=== PATIENT | female | born 1965 | race American Indian/Alaskan Native ===

== ENCOUNTER 2020-04-24 08:14 | Emergency (ER) | payer MEDICAID ==
[2020-04-24] MEDS ORDERED: MAGNESIUM HYDROXIDE (MOM) ORAL LIQD UDC PO PRN (09:03)
[2020-04-24] MEDS ORDERED: ALUM-MAG HYDROXIDE-SIMETHICONE 200-200-20MG/5ML ORAL LIQD 30 ML PO PRN (09:03)
--- NOTE | 2020-04-24 09:03 | Emergency Department Report ---
ED Psych HPI - General Chief Complaint: Psych Stated Complaint: SICK Time Seen by Provider: 04/24/20 08:28 Source: patient Mode of arrival: Ambulatory - History of Present Illness Initial Comments: This is a 54-year old female homeless brought to this facility by police. Apparently she made some suicidal claims. She states to me that she wants to "suicide herself". She also has a series of apparent physical complaints to include hematochezia, loss of taste and loss of smell. She largely answers yes to any somatic type complaint. She states that she has a history of hype rtension and they were "watching me for diabetes". She admits she takes medicine for hearing voices but is not having any hallucinosis now. She has been noncompliant with all medicine for an unknown period of time. She states her last hospitalization was in "[facility]". She does not identify family friends or a home address. At the time of my encounter the patient is identifying being hungry as her most urgent need. MD Complaint: suicidal ideation -: unknown Associated Psychiatric Symptoms: none History of same: Yes Quality: intermittent Improves With: none Worsens With: none Associated Symptoms: other (States that times hears voices) Treatments Prior to Arrival: none If Self Harm: admits thoughts of - Related Data Allergies Allergy/AdvReac Type Severity Reaction Status Date / Time No Known Allergies Allergy Verified 04/24/20 10:55 ED Review of Systems ROS: Stated complaint: SICK Other details as noted in HPI Comment: Unobtainable due to pts medical conditions ED Past Medical Hx - Past Medical History Hx Hypertension: Yes Hx Psychiatric Treatment: Yes (bipolar) - Surgical History Past Surgical History?: No - Social History Smoking Status: Never Smoker Substance Use Type: None ED Physical Exam - General Limitations: No Limitations General appearance: alert, in no apparent distress - Head Head exam: Present: atraumatic, normocephalic - Eye Eye exam: Present: normal appearance, PERRL, EOMI. Absent: scleral icterus - ENT ENT exam: Present: mucous membranes moist - Neck Neck exam: Present: normal inspection - Respiratory Respiratory exam: Present: normal lung sounds bilaterally. Absent: respiratory distress - Cardiovascular Cardiovascular Exam: Present: regular rate, normal rhythm. Absent: systolic murmur, diastolic murmur, rubs, gallop - GI/Abdominal GI/Abdominal exam: Present: soft, normal bowel sounds. Absent: distended, tenderness, guarding, rebound - Extremities Exam Extremities exam: Present: normal inspection - Back Exam Back exam: Present: normal inspection - Neurological Exam Neurological exam: Present: alert, oriented X3, CN II-XII intact. Absent: motor sensory deficit - Psychiatric Psychiatric exam: Present: normal affect, normal mood - Skin Skin exam: Present: warm, dry, intact, normal color. Absent: rash ED Course Vital Signs 04/24/20 04/24/20 08:19 09:54 Temperature 98 F Pulse Rate 63 Respiratory 20 18 Rate Blood Pressure 144/76 - Reevaluation(s) Reevaluation #1: It would appear unlikely that the patient has somatic delusions. However, pending psychiatric evaluation, I will initiate Covid precautions and order PCR. 04/24/20 11:27 ED Medical Decision Making - Lab Data Result diagrams: 04/24/20 10:11 04/24/20 10:11 Laboratory Results - last 24 hr 04/24/20 04/24/20 04/24/20 10:11 Unknown Unknown WBC 3.8 L RBC 4.32 Hgb 13.6 Hct 40.0 MCV 93 MCH 32 MCHC 34 RDW 13.6 Plt Count 178 Lymph % (Auto) 30.6 [place] % (Auto) 7.5 H Eos % (Auto) 5.5 H Baso % (Auto) 0.7 Lymph # (Auto) 1.2 [place] # (Auto) 0.3 Eos # (Auto) 0.2 Baso # (Auto) 0.0 Seg Neutrophils % 55.7 Seg Neutrophils # 2.1 Urine Color Straw Urine Turbidity Clear Urine pH 5.0 Ur Specific [place] 1.011 Urine Protein <15 mg/dl Urine Glucose (UA) Neg Urine Ketones Neg Urine Blood Neg Urine Nitrite Neg Urine Bilirubin Neg Urine Urobilinogen < 2.0 Ur Leukocyte Esterase Neg Urine WBC (Auto) < 1.0 Urine RBC (Auto) 2.0 U Epithel Cells (Auto) 1.0 Urine Bacteria (Auto) 1+ Urine Opiates Screen Negative Urine Methadone Screen Negative Ur Barbiturates Screen Negative Ur Phencyclidine Scrn Negative Ur Amphetamines Screen Negative U Benzodiazepines Scrn Negative Urine Cocaine Screen Negative U Marijuana (THC) Screen Negative Drugs of Abuse Note Disclamer Laboratory Results - last 24 hr 04/24/20 04/24/2004/24/21 10:11 10:11 10:11 WBC RBC Hgb Hct MCV MCH MCHC RDW Plt Count Lymph % (Auto) [place] % (Auto) Eos % (Auto) Baso % (Auto) Lymph # (Auto) [place] # (Auto) Eos # (Auto) Baso # (Auto) Seg Neutrophils % Seg Neutrophils # Sodium 143 Potassium 4.2 Chloride 105.3 Carbon Dioxide 26 Anion Gap 16 BUN 8 Creatinine 0.7 Estimated GFR > 60 BUN/Creatinine Ratio 11 Glucose 93 Calcium 9.5 Urine Color Urine Turbidity Urine pH Ur Specific [place] Urine Protein Urine Glucose (UA) Urine Ketones Urine Blood Urine Nitrite Urine Bilirubin Urine Urobilinogen Ur Leukocyte Esterase Urine WBC (Auto) Urine RBC (Auto) U Epithel Cells (Auto) Urine Bacteria (Auto) Salicylates < 0.3 L Urine Opiates Screen Urine Methadone Screen Acetaminophen 5.0 L Ur Barbiturates Screen Ur Phencyclidine Scrn Ur Amphetamines Screen U Benzodiazepines Scrn Urine Cocaine Screen U Marijuana (THC) Screen Drugs of Abuse Note Plasma/Serum Alcohol 04/24/20 04/24/20 04/24/20 10:11 10:11 Unknown WBC 3.8 L RBC 4.32 Hgb 13.6 Hct 40.0 MCV 93 MCH 32 MCHC 34 RDW 13.6 Plt Count 178 Lymph % (Auto) 30.6 [place] % (Auto) 7.5 H Eos % (Auto) 5.5 H Baso % (Auto) 0.7 Lymph # (Auto) 1.2 [place] # (Auto) 0.3 Eos # (Auto) 0.2 Baso # (Auto) 0.0 Seg Neutrophils % 55.7 Seg Neutrophils # 2.1 Sodium Potassium Chloride Carbon Dioxide Anion Gap BUN Creatinine Estimated GFR BUN/Creatinine Ratio Glucose Calcium Urine Color Straw Urine Turbidity Clear Urine pH 5.0 Ur Specific [place] 1.011 Urine Protein <15 mg/dl Urine Glucose (UA) Neg Urine Ketones Neg Urine Blood Neg Urine Nitrite Neg Urine Bilirubin Neg Urine Urobilinogen < 2.0 Ur Leukocyte Esterase Neg Urine WBC (Auto) < 1.0 Urine RBC (Auto) 2.0 U Epithel Cells (Auto) 1.0 Urine Bacteria (Auto) 1+ Salicylates Urine Opiates Screen Urine Methadone Screen Acetaminophen Ur Barbiturates Screen Ur Phencyclidine Scrn Ur Amphetamines Screen U Benzodiazepines Scrn Urine Cocaine Screen U Marijuana (THC) Screen Drugs of Abuse Note Plasma/Serum Alcohol < 0.01 04/24/20 Unknown WBC RBC Hgb Hct MCV MCH MCHC RDW Plt Count Lymph % (Auto) [place] % (Auto) Eos % (Auto) Baso % (Auto) Lymph # (Auto) [place] # (Auto) Eos # (Auto) Baso # (Auto) Seg Neutrophils % Seg Neutrophils # Sodium Potassium Chloride Carbon Dioxide Anion Gap BUN Creatinine Estimated GFR BUN/Creatinine Ratio Glucose Calcium Urine Color Urine Turbidity Urine pH Ur Specific [place] Urine Protein Urine Glucose (UA) Urine Ketones Urine Blood Urine Nitrite Urine Bilirubin Urine Urobilinogen Ur Leukocyte Esterase Urine WBC (Auto) Urine RBC (Auto) U Epithel Cells (Auto) Urine Bacteria (Auto) Salicylates Urine Opiates Screen Negative Urine Methadone Screen Negative Acetaminophen Ur Barbiturates Screen Negative Ur Phencyclidine Scrn Negative Ur Amphetamines Screen Negative U Benzodiazepines Scrn Negative Urine Cocaine Screen Negative U Marijuana (THC) Screen Negative Drugs of Abuse Note Disclamer Plasma/Serum Alcohol Critical care attestation.: If time is entered above; I have spent that time in minutes in the direct care of this critically ill patient, excluding procedure time. ED Disposition Clinical Impression: Psychiatric disorder, Suicidal ideation, Homelessness, Medical clearance for psychiatric admission Disposition: OP ADMIT IP TO THIS HOSP Is pt being admited?: Yes Does the pt Need Aspirin: Yes Condition: Stable Referrals: PRIMARY CARE, [Primary Care Provider] - 3-5 Days Time of Disposition: 10:00
[2020-04-24 09:14] LABS: Bacteria,Urine 1+ /HPF (Negative); Bilirubin,Urine NEG (Negative); Blood,Urine NEG (Negative); Color,Urine Straw (Yellow); Protein,Urine <15 mg/dL mg/dL (Negative); Urobilinogen,Urine < 2.0 mg/dL (<2.0); WBC,Urine < 1.0 /HPF (0.0-6.0)
[2020-04-24 09:19] LABS: Amphetamine Screen,Urine Negative; Benzodiazepines Screen,Urine Negative; Cannabinoid Screen,Urine Negative; Cocaine Screen,Urine Negative; Methadone Screen,Urine Negative; Opiate Screen,Urine Negative
[2020-04-24 10:21] LABS: Basophils % (Auto) 0.7 % (0.0-1.8); Eosinophils # (Auto) 0.2 K/mm3 (0.0-0.4); Eosinophils % (Auto) 5.5 % (0.0-4.3); Hemoglobin 13.6 gm/dl (10.1-14.3); Lymphocytes # (Auto) 1.2 K/mm3 (1.2-5.4); Lymphocytes % (Auto) 30.6 % (13.4-35.0); Mean Corpuscular HGB Conc 34 % (30-34); Mean Corpuscular Volume 93 fl (79-97); Monocytes # (Auto) 0.3 K/mm3 (0.0-0.8); Monocytes % (Auto) 7.5 % (0.0-7.3); Platelet Count 178 K/mm3 (140-440); Red Blood Count 4.32 M/mm3 (3.65-5.03); Red Cell Distribution Width 13.6 % (13.2-15.2)
--- NOTE | 2020-04-24 10:22 | Emergency Department Report ---
ED Psych HPI - General Chief Complaint: Psych Stated Complaint: SICK Time Seen by Provider: 04/24/20 08:28 Source: patient Mode of arrival: Ambulatory - History of Present Illness Quality: intermittent Improves With: none Worsens With: none Associated Symptoms: other (States that times hears voices) Treatments Prior to Arrival: none - Related Data Allergies Allergy/AdvReac Type Severity Reaction Status Date / Time No Known Allergies Allergy Unverified 04/24/20 08:19 ED Review of Systems ROS: Stated complaint: SICK Other details as noted in HPI ED Past Medical Hx - Past Medical History Hx Hypertension: Yes Hx Psychiatric Treatment: Yes (bipolar) - Surgical History Past Surgical History?: No - Social History Smoking Status: Never Smoker Substance Use Type: None ED Physical Exam - General Limitations: No Limitations General appearance: alert, in no apparent distress ED Course Vital Signs 04/24/20 04/24/20 08:19 09:54 Temperature 98 F Pulse Rate 63 Respiratory 20 18 Rate Blood Pressure 144/76 Critical care attestation.: If time is entered above; I have spent that time in minutes in the direct care of this critically ill patient, excluding procedure time. ED Disposition Condition: Stable Referrals: PRIMARY CARE [Primary Care Provider] - 3-5 Days
[2020-04-24 10:37] LABS: Blood Urea Nitrogen 8 mg/dL (7-17); Calcium 9.5 mg/dL (8.4-10.2); Hemolysis Index 43
[2020-04-24 10:40] LABS: BUN/Creatinine Ratio 11
--- NOTE | 2020-04-24 10:45 | Consultation ---
History of Present Illness - Reason for Consult Consult date: 04/24/20 Reason for consult: SI - History of Present Psychiatric Illness Per ED note: "This is a 54-year old female homeless brought to this facility by police. Apparently she made some suicidal claims. She states to me that she wants to "suicide herself". She also has a series of apparent physical complaints to include hematochezia, loss of taste and loss of smell. She largely answers yes to any somatic type complaint. She states that she has a history of hypertension and they were "watching me for diabetes". She admits she takes medicine for hearing voices but is not having any hallucinosis now. She has been noncompliant with all medicine for an unknown period of time. She states her last hospitalization was in "[facility]". She does not identify family friends or a home address." During my interview with 54y/o Kayla Kolb, she is a/o x 3. She is calm and cooperative. She is responding to internal stimuli. The patient says she came to the hospital because she has COVID 19. She says "I've been throwing up, diarrhea, and I can't taste or smell." She says "I told them if I got that I might as well go ahead and kill myself. I have nothing to live for." The patient is continuously talking to herself, and repeats the questions as if asking someone. She then is heard saying "tell her no," or "don't tell her that" to herself. She initially denies suicide at present. She then says "yes," after consulting with the voices. She says she has a history of depression. The patient says she hasn't been seeing an outpatient psych. She could not recall her medication. She denies any illicit drug use outside of THC. She also denies any alcohol use. PAST PSYCHIATRIC HISTORY: Diagnoses: Depression Suicide attempts or Self-harm behavior: Denies Prior psychiatric hospitalizations: Denies Substance Abuse history: THC Previous psychiatric medications tried: could not recall Outpatient treatment: Denies PAST MEDICAL HISTORY: None reported Family Psychiatric History: None reported or documented SOCIAL HISTORY Marital Status: Single Living Arrangements: With a friend Employment Status: Employed Access to guns/weapons: Denies Education: High school History of Abuse: None reported Legal History: None reported REVIEW OF SYSTEMS Constitutional: Negative for weight loss ENT: Negative for stridor Respiratory: Negative for cough or hemoptysis All other systems reviewed and are negative MENTAL STATUS EXAMINATION General Appearance and Behavior: Age appropriate, good hygiene, not wearing appropriate clothes, good eye contact, calm and cooperative with questioning. Cooperation: Participating Mood: okay Affect and affective range: congruent with stated mood Thought Process: Responding to internal stimuli Speech: pressured, loud volume at times Thought content: Suicidal Ideation: Yes Homicidal Ideation: Denies HI Hallucinations: Yes, auditory Delusions: None elicited Impulse Control: Normal Insight and Judgment: Impaired insight and judgment Memory: Limited Attention: Impaired Orientation: Alert, oriented Assessment and Plan (1) Schizoaffective Disorder Current Visit: Yes Status: Acute Treatment Plan Start Risperidone 0.25mg po BID Start Trazodone 50mg po qhs Start Melatonin 5mg po qhs prn Sitter: Defer to primary Medical: Per primary Disposition: Recommend acute inpatient psychiatric treatment. Will continue to follow. Thank you for this consult. Case staffed with Dr. Mtz. Medications and Allergies Allergies Allergy/AdvReac Type Severity Reaction Status Date / Time No Known Allergies Allergy Unverified 04/24/20 08:19 Active Meds: Active Medications Acetaminophen (Acetaminophen 325 Mg Tab) 650 mg PO Q4HR PRN PRN Reason: Pain MILD(1-3)/Fever >100.5/GONZALEZ Al Hydrox/Mg Hydrox/Simethicone (Alum-Mag Hydroxide-Simethicone [phone]/5ml Oral Liqd 30 Ml) 30 ml PO Q4HR PRN PRN Reason: Indigestion Magnesium Hydroxide (Magnesium Hydroxide (Mom) Oral Liqd Udc) 30 ml PO Q12HR PRN PRN Reason: Constipation Mental Status Exam - Vital signs Last Vital Signs Temp 98 F 04/24/20 08:19 Pulse 63 04/24/20 08:19 Resp 18 04/24/20 09:54 BP 144/76 04/24/20 08:19 Pulse Ox Results Result Diagrams: 04/24/20 10:11 04/24/20 10:11 Abnormal lab results 04/24/20 04/24/20 Range/Units 10:11 10:11 WBC 3.8 L (4.5-11.0) K/mm3 [place] % (Auto) 7.5 H (0.0-7.3) % Eos % (Auto) 5.5 H (0.0-4.3) % Acetaminophen 5.0 L (10.0-30.0) ug/mL All other labs normal.
[2020-04-24] MEDS: risperiDONE 0.25 MG TAB PO SCH ×2 (11:32→21:29)
[2020-04-24] MEDS: ACETAMINOPHEN 325 MG TAB PO PRN (21:27)
[2020-04-24] MEDS: traZODone 50 MG TAB PO SCH (21:29)
[2020-04-24] MEDS: MELATONIN 5 MG TAB PO PRN (21:29)
--- NOTE | 2020-04-25 09:11 | Progress Note ---
Subjective - Reason for Consult Consult date: 04/25/20 Reason for consult: SI - Chief Complaint Chief complaint: During my interview with the patient today, she is lying in bed with the linen over her head. She does pull in down to speak with me. A sitter is at bedside. He says the patient has been constantly talking to herself. She is responding to internal stimulie. Though, when I asked the patient about hallucinations, she denied it. She says she feels "okay." She says she slept "okay." The patient denies SI/HI, but states that "COVID is what makes me feel like not living." REVIEW OF SYSTEMS Constitutional: Negative for weight loss ENT: Negative for stridor Respiratory: Negative for cough or hemoptysis All other systems reviewed and are negative MENTAL STATUS EXAMINATION General Appearance and Behavior: Age appropriate, good hygiene, not wearing appropriate clothes, good eye contact, calm and cooperative with questioning. Cooperation: Participating Mood: okay Affect and affective range: congruent with stated mood Thought Process: Responding to internal stimuli Speech: pressured, loud volume at times Thought content: Suicidal Ideation: Yes Homicidal Ideation: Denies HI Hallucinations: Yes, auditory Delusions: None elicited Impulse Control: Normal Insight and Judgment: Impaired insight and judgment Memory: Limited Attention: Impaired Orientation: Alert, oriented Assessment and Plan (1) Schizoaffective Disorder Current Visit: Yes Status: Acute Treatment Plan Increase Risperidone 0.5mg po BID Sitter: Defer to primary Medical: Per primary Disposition: Recommend acute inpatient psychiatric treatment. Will continue to follow. Thank you for this consult. Case staffed with Dr. Mtz. Mental Status Exam - Vital signs Last Vital Signs Temp 97.7 F 04/24/20 20:12 Pulse 63 04/24/20 20:12 Resp 18 04/24/20 21:27 BP 144/69 04/24/20 20:12 Pulse Ox 94 04/24/20 20:12
[2020-04-25] MEDS: risperiDONE 0.25 MG TAB PO SCH ×2 (15:25→22:11)
[2020-04-25] MEDS: MELATONIN 5 MG TAB PO PRN (22:11)
[2020-04-25] MEDS: traZODone 50 MG TAB PO SCH (22:11)
--- NOTE | 2020-04-26 09:01 | Progress Note ---
Subjective - Reason for Consult Consult date: 04/26/20 Reason for consult: psychosis - Chief Complaint Chief complaint: As I'm walking toward the patient room, she is heard clapping and talking to herself out loud. When I asked the patient who was she speaking to, she replied "I'm just talking to the Lord." She is pleasant and polite. The patient then says, "but I heard a voice tell me to kill myself but I told God I'm not doing that and it went away." She says "they like to say stuff like that." When asked about suicidal thoughts, she says "no, but that's what they keep telling me." The patient states she has a bad headache. REVIEW OF SYSTEMS Constitutional: Negative for weight loss ENT: Negative for stridor Respiratory: Negative for cough or hemoptysis All other systems reviewed and are negative MENTAL STATUS EXAMINATION General Appearance and Behavior: Age appropriate, good hygiene, not wearing appropriate clothes, good eye contact, calm and cooperative with questioning. Cooperation: Participating Mood: okay Affect and affective range: congruent with stated mood Thought Process: Responding to internal stimuli Speech: pressured, loud volume at times Thought content: Suicidal Ideation: Denies Homicidal Ideation: Denies HI Hallucinations: Yes, auditory, command Delusions: None elicited Impulse Control: Normal Insight and Judgment: Impaired insight and judgment Memory: Limited Attention: Impaired Orientation: Alert, oriented Assessment and Plan (1) Schizoaffective Disorder Current Visit: Yes Status: Acute Treatment Plan Increased Risperidone 1mg po BID Started Depakote DR 125mg po BID Sitter: Defer to primary Medical: Per primary Disposition: Recommend acute inpatient psychiatric treatment. Will continue to follow. Thank you for this consult. Case staffed with Dr. Mtz. Mental Status Exam - Vital signs Last Vital Signs Temp 97.9 F 04/26/20 08:15 Pulse 62 04/26/20 08:15 Resp 16 04/26/20 08:15 BP 123/71 04/26/20 08:15 Pulse Ox 95 04/26/20 08:15
[2020-04-26] MEDS: ACETAMINOPHEN 325 MG TAB PO PRN ×2 (09:05→15:28)
[2020-04-26] MEDS: DIVALPROEX DR 125 MG TAB PO SCH ×2 (10:17→22:22)
[2020-04-26] MEDS: risperiDONE 1 MG TAB PO SCH ×2 (10:19→21:49)
[2020-04-26] MEDS ORDERED: IBUPROFEN 800 MG TAB PO ONE (16:58)
[2020-04-26] MEDS ORDERED: LORazepam 1 MG TAB PO ONE (16:58)
[2020-04-26] MEDS: traZODone 50 MG TAB PO SCH (21:49)
--- NOTE | 2020-04-27 09:51 | Progress Note ---
Subjective - Reason for Consult Consult date: 04/27/20 Reason for consult: psychosis - Chief Complaint Chief complaint: During my interview with the patient she is sitting on side of the bed. Her mood is elevated. She is delusional. She is hallucinating, as the sitter at bedside states she constantly talks to herself. The patient is telling me that her sister the other day, and her mother yesterday. She is telling me she needs to leave to go to their funerals. The patient then says, "the lady last night says I need to take 2 showers a day, and when I get lonely, angry, tired or frustrated I need peanut butter, and orange juice." She then says, "she showed me all of this in the computer." The patient denies SI/HI. She also denies hallucinations, but states "they haven't told me nothing today." REVIEW OF SYSTEMS Constitutional: Negative for weight loss ENT: Negative for stridor Respiratory: Negative for cough or hemoptysis All other systems reviewed and are negative MENTAL STATUS EXAMINATION General Appearance and Behavior: Age appropriate, good hygiene, not wearing appropriate clothes, good eye contact, calm and cooperative with questioning. Cooperation: Participating Mood: okay Affect and affective range: congruent with stated mood Thought Process: Responding to internal stimuli Speech: pressured, loud volume at times Thought content: Suicidal Ideation: Denies Homicidal Ideation: Denies HI Hallucinations: Yes, auditory, command Delusions: None elicited Impulse Control: Normal Insight and Judgment: Impaired insight and judgment Memory: Limited Attention: Impaired Orientation: Alert, oriented Assessment and Plan (1) Schizoaffective Disorder Current Visit: Yes Status: Acute Treatment Plan Risperidone 1mg po BID increased yesterday Increased Depakote DR 250mg po BID Sitter: Defer to primary Medical: Per primary Disposition: Recommend acute inpatient psychiatric treatment. Will continue to follow. Thank you for this consult. Case staffed with Dr. Mtz. Mental Status Exam - Vital signs Last Vital Signs Temp 97.6 F 04/27/20 08:55 Pulse 63 04/27/20 08:55 Resp 20 04/27/20 08:55 BP 129/77 04/27/20 08:55 Pulse Ox 96 04/27/20 08:55
[2020-04-27] MEDS: DIVALPROEX DR 250 MG TAB PO SCH ×2 (10:37→22:08)
[2020-04-27] MEDS: risperiDONE 1 MG TAB PO SCH ×2 (10:37→22:09)
[2020-04-27] MEDS: ACETAMINOPHEN 325 MG TAB PO PRN ×2 (10:37→15:29)
[2020-04-27] MEDS: traZODone 50 MG TAB PO SCH (22:08)
[2020-04-27] MEDS: MELATONIN 5 MG TAB PO PRN (22:08)
--- NOTE | 2020-04-28 09:33 | Progress Note ---
Subjective - Reason for Consult Consult date: 04/28/20 Reason for consult: pspychosis, command hallucinations - Chief Complaint Chief complaint: Per nurse caring for patient: The patient has been pacing back and fourth During my interview with the patient she standing in her room walking around. Her mood is heightened and labile. She is delusional and responding to internal stimuli. She greets me with a huge grin on her face and says "I feel great." The patient then starts crying and asks "can you please send me home doctor." She then says "I've only been hearing the voices tell me to kill myself but I haven't been listening to them." She says "I keep telling them I don't want to do that." She then says "my momma's is today, and my sister yesterday." The patient patient then stops crying and jumps and hugs me. She denies SI/HI. REVIEW OF SYSTEMS Constitutional: Negative for weight loss ENT: Negative for stridor Respiratory: Negative for cough or hemoptysis All other systems reviewed and are negative MENTAL STATUS EXAMINATION General Appearance and Behavior: Age appropriate, good hygiene, not wearing appropriate clothes, good eye contact, calm and cooperative with questioning. Cooperation: Participating Mood: "great" Affect and affective range: congruent with stated mood, labile Thought Process: Responding to internal stimuli Speech: normal tone and pace Thought content: Suicidal Ideation: Denies Homicidal Ideation: Denies HI Hallucinations: Yes, auditory, command Delusions: Yes Impulse Control: Normal Insight and Judgment: Impaired insight and judgment Memory: Limited Attention: Impaired Orientation: Alert, oriented Assessment and Plan (1) Schizoaffective Disorder Current Visit: Yes Status: Acute Treatment Plan Increased Risperidone 2mg po BID increased yesterday Sitter: Defer to primary Medical: Per primary Disposition: Recommend acute inpatient psychiatric treatment. Will continue to follow. Thank you for this consult. Case staffed with Dr. Mtz. Mental Status Exam - Vital signs Last Vital Signs Temp 97.9 F 04/28/20 07:41 Pulse 68 04/28/20 07:41 Resp 20 04/28/20 07:41 BP 125/70 04/28/20 07:41 Pulse Ox 99 04/28/20 07:41
[2020-04-28] MEDS: DIVALPROEX DR 250 MG TAB PO SCH (09:57)
[2020-04-28] MEDS ORDERED: risperiDONE 1 MG TAB PO SCH (10:00)
[2020-04-28 13:33] VITALS: BP 105/55
[2020-04-28] MEDS ORDERED: ZIPRASIDONE MESYLATE 20 MG VIAL IM ONE ×2 (14:04→14:05)
[2020-04-28] MEDS ORDERED: WATER FOR INJ Sterile (PF) 10 ML ONE (14:07)
[2020-04-28] MEDS: ACETAMINOPHEN 325 MG TAB PO PRN (15:49)
== END 2020-04-28 18:50 | disposition admitted as inpatient to this hospital (09) ==
LOC: EDBD → ED 08:14
DX: R45.851 Suicidal ideations (principal); Z20.828 Contact with and (suspected) exposure to other viral communicable diseases; Z59.0 Homelessness; Z04.6 Encounter for general psychiatric examination, requested by authority; I10 Essential (primary) hypertension; F31.9 Bipolar disorder, unspecified
CPT/HCPCS: 36415; 80048; 80307; 81001; 85025; 96372; 99284; J3486; U0003; 80320; G0480

== ENCOUNTER 2020-04-28 14:41 | Inpatient (IN) | payer MEDICAID ==
[2020-04-28] MEDS: traZODone 50 MG TAB PO SCH (21:16)
[2020-04-28] MEDS: risperiDONE 1 MG TAB PO SCH (21:16)
[2020-04-29 03:55] LABS: Bacteria,Urine 1+ /HPF (Negative); Bilirubin,Urine NEG (Negative); Blood,Urine NEG (Negative); Color,Urine Yellow (Yellow); Protein,Urine <15 mg/dL mg/dL (Negative); Urobilinogen,Urine < 2.0 mg/dL (<2.0)
--- NOTE | 2020-04-29 09:01 | History and Physical Report ---
GP History & Physical - History of Present Illness Date of admission: 04/28/20 Date of Examination: 04/29/20 Reason for Admission: Danger to self, Failure of Outpatient Treatment History of Present Illness: Per ED note: "This is a 54-year old female homeless brought to this facility by police. Apparently she made some suicidal claims. She states to me that she wants to "suicide herself". She also has a series of apparent physical complaints to include hematochezia, loss of taste and loss of smell. She largely answers yes to any somatic type complaint. She states that she has a history of hypertension and they were "watching me for diabetes". She admits she takes medicine for hearing voices but is not having any hallucinosis now. She has been noncompliant with all medicine for an unknown period of time. She states her last hospitalization was in "[facility]". She does not identify family friends or a home address." Estefanía Linares is a 54y/o female patient whom I've been treating during her ER stay. She was initially suicidal, but this seems to have subsided. The patient does having the command hallucinations on and off. She denies this morning, but reported them yesterday stating "they told me to kill myself but I told them I'm not going to do that." She is a/o x 3. Her mood is elevated. She's clapping and greats me with a big smile. She is asking if she can go home to her mother's today at four. She says "I'm doing great. The medication you gave me is helping. PAST PSYCHIATRIC HISTORY: Diagnoses: Depression Suicide attempts or Self-harm behavior: Denies Prior psychiatric hospitalizations: Denies Substance Abuse history: THC Previous psychiatric medications tried: could not recall Outpatient treatment: Denies PAST MEDICAL HISTORY: None reported Family Psychiatric History: None reported or documented SOCIAL HISTORY Marital Status: Single Living Arrangements: With a friend Employment Status: Employed Access to guns/weapons: Denies Education: High school History of Abuse: None reported Legal History: None reported REVIEW OF SYSTEMS Constitutional: Negative for weight loss ENT: Negative for stridor Respiratory: Negative for cough or hemoptysis All other systems reviewed and are negative MENTAL STATUS EXAMINATION General Appearance and Behavior: Age appropriate, good hygiene, not wearing appropriate clothes, good eye contact, calm and cooperative with questioning. Cooperation: Participating Mood: okay Affect and affective range: congruent with stated mood Thought Process: Responding to internal stimuli Speech: pressured, loud volume at times Thought content: Suicidal Ideation: Denies Homicidal Ideation: Denies HI Hallucinations: Yes, auditory Delusions: None elicited Impulse Control: Normal Insight and Judgment: Impaired insight and judgment Memory: Limited Attention: Impaired Orientation: Alert, oriented Assessment and Plan (1) Schizoaffective Disorder Current Visit: Yes Status: Acute Treatment Plan Patient admitted for inpatient psychiatric evaluation, medication adjustment and close monitoring The patient's behavior, mood, sleep and appetite will be closely monitored. Patient enrolled in individual and group therapeutic sessions and encouraged to attend. Patient provided with a safe and structured environment. Patient's physical health needs will be addressed by the Hospitalist. Hospitalist Consulted Labs including CBC, CMP, Lipid profile and Hemoglobin A1C levels ordered for baseline reference Social Assessment will be completed and the Amalgamator will work with patient and family to ensure a suitable and safe disposition Medication adjustment will be made as clinically indicated Continue Risperidone 2mg po BID Start Depakote DR 125mg po BID Usual Wellness Buddhist/Preservation: - Start Trazodone 50 mg po QHS & 50 mg po QHS PRN between 10 PM & 2 AM for insomnia - Start Melatonin 5 mg po QHS to promote circadian rhythm - Start [place]-3 for brain health, reduce impulsivity, and as adjunctive treatment for mood disorder, continue upon discharge given overall benefits. - Start B1 prophylaxis with 200 mg po for 5 days The patient agreed on the treatment plan, understood the risk, benefit, alternative treatment, potential consequence of no treatment, and gave informed consent. Initial Certification I certify that the inpatient psychiatric services are required for treatment that could reasonably be expected to improve the patient's condition. Estimated days: 7 Post hospital care: primary care provider, psychiatric provider Case staffed with Dr. Mtz. Legal Status: Voluntary Reaction to Hospitalization: Accepting Medications and Allergies Allergies Allergy/AdvReac Type Severity Reaction Status Date / Time No Known Allergies Allergy Verified 04/24/20 10:55 Home Medications Medication Instructions Recorded Confirmed Last Taken Type Unobtainable 04/26/20 04/29/[address] [DepaKOTE DR] 250 mg PO BID 04/29/20 04/29/20 04/28/20 09:57 History amLODIPine [Norvasc] 5 mg PO DAILY 04/29/20 04/29/20 Unknown History risperiDONE [RisperDAL] 2 mg PO BID 04/29/20 04/29/20 04/28/20 09:57 History Active Meds: Active Medications Risperidone (Risperidone 1 Mg Tab) 2 mg PO BID [facility] Last Admin: 04/28/20 21:16 Dose: 2 mg Documented by: Trazodone HCl (Trazodone 50 Mg Tab) 50 mg PO QHS [facility] Last Admin: 04/28/20 21:16 Dose: 50 mg Documented by: Results - Results Labs/Vitals: Laboratory Last Values POC Glucose 86 mg/dL (70-105) 04/29/20 02:16 Urine Color Yellow (Yellow) 04/29/20 Unknown Urine Turbidity Slightly-cloudy (Clear) 04/29/20 Unknown Urine pH 5.0 (5.0-7.0) 04/29/20 Unknown Ur Specific [place] 1.014 (1.003-1.030) 04/29/20 Unknown Urine Protein <15 mg/dl mg/dL (Negative) 04/29/20 Unknown Urine Glucose (UA) Neg mg/dL (Negative) 04/29/20 Unknown Urine Ketones Neg mg/dL (Negative) 04/29/20 Unknown Urine Blood Neg (Negative) 04/29/20 Unknown Urine Nitrite Neg (Negative) 04/29/20 Unknown Urine Bilirubin Neg (Negative) 04/29/20 Unknown Urine Urobilinogen < 2.0 mg/dL (<2.0) 04/29/20 Unknown Ur Leukocyte Esterase Lg (Negative) 04/29/20 Unknown Urine WBC (Auto) 6.0 /HPF (0.0-6.0) 04/29/20 Unknown Urine RBC (Auto) 3.0 /HPF (0.0-6.0) 04/29/20 Unknown U Epithel Cells (Auto) 5.0 /HPF (0-13.0) 04/29/20 Unknown Urine Bacteria (Auto) 1+ /HPF (Negative) 04/29/20 Unknown Last Vital Signs Temp 97.5 F L 04/28/20 22:00 Pulse 61 04/28/20 22:00 Resp 16 04/28/20 22:00 BP 112/64 04/28/20 22:00 Pulse Ox 99 04/28/20 22:00 Physical Examination - Constitutional Vitals: Vital Signs Temp Pulse Resp BP Pulse Ox 97.5 F L 61 16 112/64 99 04/28/20 22:00 04/28/20 22:00 04/28/20 22:00 04/28/20 22:00 04/28/20 22:00 Temperature -Last 24 Hours Temperature 97.5 F Temperature 97.5 F Mental Status Exam - Vital signs Last Vital Signs Temp 97.5 F L 04/28/20 22:00 Pulse 61 04/28/20 22:00 Resp 16 04/28/20 22:00 BP 112/64 04/28/20 22:00 Pulse Ox 99 04/28/20 22:00 Physician Certification - Certification Statement Physician Certification Statement: This is an acknowledgement statement that ESTEFANÍA MONTANO is a 54 year old F who requires inpatient psychiatric admission for treatment which could reasonably be expected to improve the patient's condition for Estimated period of time patient will need to remain in the hospital: [ ] Plan for post-hospital care: [ ]
[2020-04-29 09:58] LABS: Basophils % (Auto) 0.7 % (0.0-1.8); Eosinophils # (Auto) 0.1 K/mm3 (0.0-0.4); Eosinophils % (Auto) 3.4 % (0.0-4.3); Hematocrit 41.3 % (30.3-42.9); Hemoglobin 14.1 gm/dl (10.1-14.3); Lymphocytes # (Auto) 1.5 K/mm3 (1.2-5.4); Lymphocytes % (Auto) 37.8 % (13.4-35.0); Mean Corpuscular HGB Conc 34 % (30-34); Mean Corpuscular Volume 92 fl (79-97); Monocytes # (Auto) 0.3 K/mm3 (0.0-0.8); Monocytes % (Auto) 8.6 % (0.0-7.3); Platelet Count 210 K/mm3 (140-440); Red Blood Count 4.51 M/mm3 (3.65-5.03); Red Cell Distribution Width 13.3 % (13.2-15.2)
[2020-04-29] MEDS: risperiDONE 1 MG TAB PO SCH ×2 (10:06→21:08)
[2020-04-29] MEDS: DIVALPROEX DR 125 MG TAB PO SCH ×2 (10:06→21:08)
[2020-04-29 10:16] LABS: Alanine Aminotransferase 31 units/L (7-56); Albumin 4.4 g/dL (3.9-5); BUN/Creatinine Ratio 20; Blood Urea Nitrogen 16 mg/dL (7-17); Calcium 9.4 mg/dL (8.4-10.2); Chol/HDL Ratio 3.17 %; HDL Cholesterol 69 mg/dL (40-59); Hemolysis Index 11; LDL Cholesterol,Direct 152 mg/dL (50-130)
--- NOTE | 2020-04-29 10:48 | Consultation ---
<MORGANHARJIT ReedShazia - Last Filed: 04/29/20 13:58> History of Present Illness - Reason for Consult Consult date: 04/29/20 Medical management Requesting physician: KIANA WATTS - History of Present Illness This is a 54-year-old female with HTN, "borderline" diabetes, NM (2013 or 2014) and anxiety who was admitted to [facility] for suicidal ideation. We were consulted for medical management while inpatient. Patient states she has COVID 19 infection and agrees to all somatic symtpms asked. She states she has atypical chest tightness and SOB while stressed. Patient states that she has coughed twice and endorses loose stools for 1 day. Patient states that she had subjective fevers, chills, headache, fatigue in the same timeframe. Patient does not endorse hemoptysis, recent weight loss, loss of taste/smell, nausea or vomiting, recent travel, recent sick contacts or known exposure to COVID-19. Of note patient was tested for COVID-19 prior to admission which was negative. She also expresses that she needs to leave the facility because she has a to attend at 4 PM today and states that she is angry, frustrated, lonely, angry and tired. Prior records reviewed. Past History Past Medical History: hypertension, other (Anxiety) Past Surgical History: No surgical history Social history: single, full code. denies: smoking, alcohol abuse, prescription drug abuse, IV drug use Family history: cancer, diabetes, other (ESRD on HD, "mental health issues") Medications and Allergies Allergies Allergy/AdvReac Type Severity Reaction Status Date / Time No Known Allergies Allergy Verified 04/24/20 10:55 Home Medications Medication Instructions Recorded Confirmed Last Taken Type Unobtainable 04/26/20 04/29/[address] [DepaKOTE DR] 250 mg PO BID 04/29/20 04/29/20 04/28/20 09:57 History amLODIPine [Norvasc] 5 mg PO DAILY 04/29/20 04/29/20 Unknown History risperiDONE [RisperDAL] 2 mg PO BID 04/29/20 04/29/20 04/28/20 09:57 History Active Meds: Active Medications Divalproex Sodium (Divalproex Dr 125 Mg Tab) 125 mg PO BID [facility] Last Admin: 04/29/20 10:06 Dose: 125 mg Documented by: Risperidone (Risperidone 1 Mg Tab) 2 mg PO BID [facility] Last Admin: 04/29/20 10:06 Dose: 2 mg Documented by: Trazodone HCl (Trazodone 50 Mg Tab) 50 mg PO QHS [facility] Last Admin: 04/28/20 21:16 Dose: 50 mg Documented by: Review of Systems Constitutional: fever, chills, fatigue, no weight loss, no weight gain, no sweats, no night sweats, no anorexia, no weakness, no malaise, no poor appetite, no daytime sleepiness, no chronic pain Ears, nose, mouth and throat: no ear pain, no ear discharge, no tinnitis, no de creased hearing, no nose pain, no nasal congestion, no nasal discharge, no sinus pressure, no sinus pain, no epistaxis, no bleeding gums, no hoarseness, no sore throat, no headache, no neck fullness/pressure Breasts: normal Cardiovascular: palpitations (With anxiety), shortness of breath (With anxiety), high blood pressure, no chest pain, no orthopnea, no rapid/irregular heart beat, no edema, no syncope, no lightheadedness, no paroxysmal nocturnal dyspnea, no leg edema Respiratory: cough (04/26), shortness of breath, no cough with sputum, no excessive sputum, no hemoptysis, no dyspnea on exertion, no congestion, no pain, no pain on inspiration Gastrointestinal: diarrhea, no abdominal pain, no nausea, no vomiting, no constipation, no change in bowel habits, no hematemesis, no coffee ground e mesis, no BRBPR, no melena, no hematochezia, no early satiety, no heartburn, no indigestion Genitourinary Female: no dyspareunia, no dysmenorrhea, no pelvic pain, no flank pain, no urinary frequency, no urgency, no stress incontinence, no post void dribbling, no hematuria, no nocturia Menstruation: postmenopausal Rectal: no incontinence, no bleeding, no itching, no hemorrhoids Musculoskeletal: no neck stiffness, no neck pain, no shooting arm pain, no arm numbness/tingling, no low back pain, no shooting leg pain, no leg numbness/tingling, no frequent falls, no loss of height Integumentary: no rash, no pruritis, no redness, no sores, no wounds, no jaundice, no darkening of skin, no depigmentation Neurological: no head injury, no transient paralysis, no paralysis, no weakness, no parathesias, no numbness, no tingling, no seizures, no syncope, no vertigo, no convulsions, no changes in smell/taste Psychiatric: anxiety, anxiety attacks, no memory loss, no change in sleep habits, no sleep disturbances, no insomnia, no hypersomnia, no change in appetite, no paranoia, no depression, no hopelessness Endocrine: no cold intolerance, no heat intolerance, no polyphagia, no excessive thirst, no polydipsia, no polyuria, no nocturia, no increase in ring/shoe/hat size, no palpatations Hematologic/Lymphatic: no easy bruising, no easy bleeding Exam - Constitutional Vitals: Temp Pulse Resp BP Pulse Ox 97.5 F L 61 16 112/64 99 04/28/20 22:00 04/28/20 22:00 04/28/20 22:00 04/28/20 22:00 04/28/20 22:00 General appearance: Present: no acute distress - EENT Eyes: Present: PERRL, EOM intact ENT: hearing intact, poor dentition - Neck Neck: Present: normal ROM - Respiratory Respiratory effort: normal Respiratory: bilateral: CTA - Cardiovascular Rhythm: regular Heart Sounds: Present: S1 & S2. Absent: systolic murmur, diastolic murmur - Extremities Extremities: no ischemia, pulses intact, pulses symmetrical, No edema, normal temperature, normal color, Full ROM Peripheral Pulses: within normal limits - Abdominal General gastrointestinal: Present: soft, non-tender, non-distended, normal bowel sounds - Integumentary Integumentary: Present: clear, warm, dry - Musculoskeletal Musculoskeletal: strength equal bilaterally - Psychiatric Psychiatric: appropriate mood/affect, cooperative - Neurologic Neurologic: CNII-XII intact, no focal deficits, moves all extremities - Allied Health Allied health notes reviewed: nursing Results - Labs CBC & Chem 7: 04/29/20 09:28 04/29/20 09:28 Labs: Abnormal lab results 04/29/20 04/29/20 Range/Units 09:28 09:28 WBC 3.9 L (4.5-11.0) K/mm3 Lymph % (Auto) 37.8 H (13.4-35.0) % [place] % (Auto) 8.6 H (0.0-7.3) % Carbon Dioxide 33 H D (22-30) mmol/L Cholesterol 219 H (50-199) mg/dL LDL Cholesterol Direct 152 H (50-130) mg/dL HDL Cholesterol 69 H (40-59) mg/dL Assessment and Plan Schizoaffective disorder -Per primary team Hypertension -Patient's medications include amlodipine 5 mg daily -Resume home antihypertensive regimen when appropriate -Blood pressure monitoring per protocol Metabolic Alkalosis -Likely secondary to vomiting for 2 days prior to admit -Trend BMP Leukopenia -Patient was leukopenic on last admission in March 2020 -Trend CBC -Monitor for signs and symptoms of infection -Neutropenic precautions when appropriate "Borderline" diabetes -2/3 Hbg A1C 5.8 -CC diet per primary -Accucheck ACHS per primary Hyperlipidemia/Hypercholesteromia -2/3 lipid panel triglycerides 99, cholesterol 219, LDL 152, HDL 69 -ASCVD risk calculated is 4.0% and does not recommend statin at this time -Encourage dietary and lifestyle modifications DVT prophylaxis -SCDs to bilateral lower extremities while in bed -Patient is ambulatory <CRYSTAL SHARPE - Last Filed: 04/30/20 07:57> Medications and Allergies Active Meds: Active Medications Divalproex Sodium (Divalproex Dr 125 Mg Tab) 125 mg PO BID [facility] Last Admin: 04/29/20 21:08 Dose: 125 mg Documented by: Risperidone (Risperidone 1 Mg Tab) 2 mg PO BID [facility] Last Admin: 04/29/20 21:08 Dose: 2 mg Documented by: Trazodone HCl (Trazodone 50 Mg Tab) 50 mg PO QHS [facility] Last Admin: 04/29/20 21:07 Dose: 50 mg Documented by: Exam - Constitutional Vitals: Temp Pulse Resp BP Pulse Ox 98.4 F 58 L 18 127/72 100 04/29/20 22:00 04/29/20 22:00 04/29/20 22:00 04/29/20 22:00 04/29/20 22:00 Results - Labs CBC & Chem 7: 04/29/20 09:28 04/29/20 09:28 Labs: Abnormal lab results 04/29/20 04/29/20 Range/Units 09:28 09:28 WBC 3.9 L (4.5-11.0) K/mm3 Lymph % (Auto) 37.8 H (13.4-35.0) % [place] % (Auto) 8.6 H (0.0-7.3) % Carbon Dioxide 33 H D (22-30) mmol/L Cholesterol 219 H (50-199) mg/dL LDL Cholesterol Direct 152 H (50-130) mg/dL HDL Cholesterol 69 H (40-59) mg/dL Assessment and Plan I saw and evaluated the patient. I agree with the findings and the plan of care as documented in the Nurse Practitioner's~note, with the following corrections and additions.
[2020-04-29] MEDS ORDERED: FLU VACC QUAD 2020-2021 (6 months +)/PF 60 0.5 ML SYRINGE IM ONE (12:00)
[2020-04-29] MEDS: traZODone 50 MG TAB PO SCH (21:07)
--- NOTE | 2020-04-30 08:28 | Progress Note ---
Subjective Date of service: 04/30/20 Subjective Comment: The patient is sitting in the dayroom. Her affect is bright. She is delusional. She says she is much better. The patient denies hallucinations at present, but states "it was a day or so they told me to get a gun and kill myself." She says "but the medication has been helping me, Doctor." She says her mother and her sister in law will be cremated today at four. She has been saying this with changing details for the past few days. REVIEW OF SYSTEMS Constitutional: Negative for weight loss ENT: Negative for stridor Respiratory: Negative for cough or hemoptysis All other systems reviewed and are negative MENTAL STATUS EXAMINATION General Appearance and Behavior: Age appropriate, good hygiene, not wearing appropriate clothes, good eye contact, calm and cooperative with questioning. Cooperation: Participating Mood: okay Affect and affective range: congruent with stated mood Thought Process: Responding to internal stimuli Speech: pressured, loud volume at times Thought content: Suicidal Ideation: Denies Homicidal Ideation: Denies HI Hallucinations: Yes, auditory Delusions: None elicited Impulse Control: Normal Insight and Judgment: Impaired insight and judgment Memory: Limited Attention: Impaired Orientation: Alert, oriented Assessment and Plan (1) Schizoaffective Disorder Current Visit: Yes Status: Acute Treatment Plan Patient admitted for inpatient psychiatric evaluation, medication adjustment and close monitoring The patient's behavior, mood, sleep and appetite will be closely monitored. Patient enrolled in individual and group therapeutic sessions and encouraged to attend. Patient provided with a safe and structured environment. Patient's physical health needs will be addressed by the Hospitalist. Hospitalist Consulted Labs including CBC, CMP, Lipid profile and Hemoglobin A1C levels ordered for baseline reference Social Assessment will be completed and the Program Review Director will work with patient and family to ensure a suitable and safe disposition Medication adjustment will be made as clinically indicated Continue Risperidone 2mg po BID Increase Depakote DR 250mg po BID Usual Wellness Hindu/Preservation: - Start Trazodone 50 mg po QHS & 50 mg po QHS PRN between 10 PM & 2 AM for insomnia - Start Melatonin 5 mg po QHS to promote circadian rhythm - Start [place]-3 for brain health, reduce impulsivity, and as adjunctive treatment for mood disorder, continue upon discharge given overall benefits. - Start B1 prophylaxis with 200 mg po for 5 days The patient agreed on the treatment plan, understood the risk, benefit, alternative treatment, potential consequence of no treatment, and gave informed consent. Initial Certification I certify that the inpatient psychiatric services are required for treatment that could reasonably be expected to improve the patient's condition. Estimated days: 4 Post hospital care: primary care provider, psychiatric provider Case staffed with Dr. Mtz. Medications and Allergies Allergies Allergy/AdvReac Type Severity Reaction Status Date / Time No Known Allergies Allergy Verified 04/24/20 10:55 Home Medications Medication Instructions Recorded Confirmed Last Taken Type Unobtainable 04/26/20 04/29/[address] [DepaKOTE DR] 250 mg PO BID 04/29/20 04/29/20 04/28/20 09:57 History amLODIPine [Norvasc] 5 mg PO DAILY 04/29/20 04/29/20 Unknown History risperiDONE [RisperDAL] 2 mg PO BID 04/29/20 04/29/20 04/28/20 09:57 History Active Meds: Active Medications Divalproex Sodium (Divalproex Dr 125 Mg Tab) 125 mg PO BID [facility] Last Admin: 04/29/20 21:08 Dose: 125 mg Documented by: Risperidone (Risperidone 1 Mg Tab) 2 mg PO BID [facility] Last Admin: 04/29/20 21:08 Dose: 2 mg Documented by: Trazodone HCl (Trazodone 50 Mg Tab) 50 mg PO QHS [facility] Last Admin: 04/29/20 21:07 Dose: 50 mg Documented by: Results - Results Labs/Vitals: Laboratory Last Values WBC 3.9 K/mm3 (4.5-11.0) L 04/29/20 09:28 RBC 4.51 M/mm3 (3.65-5.03) 04/29/20 09:28 Hgb 14.1 gm/dl (10.1-14.3) 04/29/20 09:28 Hct 41.3 % (30.3-42.9) 04/29/20 09:28 MCV 92 fl (79-97) 04/29/20 09:28 MCH 31 pg (28-32) 04/29/20 09:28 MCHC 34 % (30-34) 04/29/20 09:28 RDW 13.3 % (13.2-15.2) 04/29/20 09:28 Plt Count 210 K/mm3 (140-440) 04/29/20 09:28 Lymph % (Auto) 37.8 % (13.4-35.0) H 04/29/20 09:28 [place] % (Auto) 8.6 % (0.0-7.3) H 04/29/20 09:28 Eos % (Auto) 3.4 % (0.0-4.3) 04/29/20 09:28 Baso % (Auto) 0.7 % (0.0-1.8) 04/29/20 09:28 Lymph # (Auto) 1.5 K/mm3 (1.2-5.4) 04/29/20 09:28 [place] # (Auto) 0.3 K/mm3 (0.0-0.8) 04/29/20 09:28 Eos # (Auto) 0.1 K/mm3 (0.0-0.4) 04/29/20 09:28 Baso # (Auto) 0.0 K/mm3 (0.0-0.1) 04/29/20 09:28 Seg Neutrophils % 49.5 % (40.0-70.0) 04/29/20 09:28 Seg Neutrophils # 1.9 K/mm3 (1.8-7.7) 04/29/20 09:28 Sodium 142 mmol/L (137-145) 04/29/20 09:28 Potassium 4.5 mmol/L (3.6-5.0) 04/29/20 09:28 Chloride 103.5 mmol/L (98-107) 04/29/20 09:28 Carbon Dioxide 33 mmol/L (22-30) H D 04/29/20 09:28 Anion Gap 10 mmol/L 04/29/20 09:28 BUN 16 mg/dL (7-17) 04/29/20 09:28 Creatinine 0.8 mg/dL (0.6-1.2) 04/29/20 09:28 Estimated GFR > 60 ml/min 04/29/20 09:28 BUN/Creatinine Ratio 20 % 04/29/20 09:28 Glucose 67 mg/dL (65-100) 04/29/20 09:28 POC Glucose 81 mg/dL (70-105) 04/30/20 06:45 Hemoglobin A1c 5.8 % (4-6) 04/29/20 09:28 Calcium 9.4 mg/dL (8.4-10.2) 04/29/20 09:28 Total Bilirubin 0.30 mg/dL (0.1-1.2) 04/29/20 09:28 AST 29 units/L (5-40) 04/29/20 09:28 ALT 31 units/L (7-56) 04/29/20 09:28 Alkaline Phosphatase 70 units/L (35-129) 04/29/20 09:28 Total Protein 7.6 g/dL (6.3-8.2) 04/29/20 09:28 Albumin 4.4 g/dL (3.9-5) 04/29/20 09:28 Albumin/Globulin Ratio 1.4 % 04/29/20 09:28 Triglycerides 99 mg/dL (2-149) 04/29/20 09:28 Cholesterol 219 mg/dL (50-199) H 04/29/20 09:28 LDL Cholesterol Direct 152 mg/dL (50-130) H 04/29/20 09:28 HDL Cholesterol 69 mg/dL (40-59) H 04/29/20 09:28 Cholesterol/HDL Ratio 3.17 % 04/29/20 09:28 TSH 1.460 mlU/mL (0.270-4.200) 04/29/20 09:28 Urine Color Yellow (Yellow) 04/29/20 Unknown Urine Turbidity Slightly-cloudy (Clear) 04/29/20 Unknown Urine pH 5.0 (5.0-7.0) 04/29/20 Unknown Ur Specific [place] 1.014 (1.003-1.030) 04/29/20 Unknown Urine Protein <15 mg/dl mg/dL (Negative) 04/29/20 Unknown Urine Glucose (UA) Neg mg/dL (Negative) 04/29/20 Unknown Urine Ketones Neg mg/dL (Negative) 04/29/20 Unknown Urine Blood Neg (Negative) 04/29/20 Unknown Urine Nitrite Neg (Negative) 04/29/20 Unknown Urine Bilirubin Neg (Negative) 04/29/20 Unknown Urine Urobilinogen < 2.0 mg/dL (<2.0) 04/29/20 Unknown Ur Leukocyte Esterase Lg (Negative) 04/29/20 Unknown Urine WBC (Auto) 6.0 /HPF (0.0-6.0) 04/29/20 Unknown Urine RBC (Auto) 3.0 /HPF (0.0-6.0) 04/29/20 Unknown U Epithel Cells (Auto) 5.0 /HPF (0-13.0) 04/29/20 Unknown Urine Bacteria (Auto) 1+ /HPF (Negative) 04/29/20 Unknown Last Vital Signs Temp 98.4 F 04/29/20 22:00 Pulse 58 L 04/29/20 22:00 Resp 18 04/29/20 22:00 BP 127/72 04/29/20 22:00 Pulse Ox 100 04/29/20 22:00
[2020-04-30 09:51] LABS: Hematocrit 41.7 % (30.3-42.9); Mean Corpuscular HGB Conc 34 % (30-34); Mean Corpuscular Volume 91 fl (79-97); Platelet Count 195 K/mm3 (140-440); Red Blood Count 4.57 M/mm3 (3.65-5.03); Red Cell Distribution Width 13.7 % (13.2-15.2)
[2020-04-30] MEDS: DIVALPROEX DR 250 MG TAB PO SCH ×2 (10:15→23:58)
[2020-04-30] MEDS: risperiDONE 1 MG TAB PO SCH ×2 (10:15→23:58)
[2020-04-30 10:17] LABS: Blood Urea Nitrogen 14 mg/dL (7-17); Calcium 9.4 mg/dL (8.4-10.2); Hemolysis Index 1
[2020-04-30 10:19] LABS: BUN/Creatinine Ratio 20
[2020-04-30] MEDS: traZODone 50 MG TAB PO SCH (23:58)
[2020-05-01] MEDS: DIVALPROEX DR 250 MG TAB PO SCH ×3 (10:02→20:23)
[2020-05-01] MEDS: risperiDONE 1 MG TAB PO SCH ×2 (10:02→21:05)
--- NOTE | 2020-05-01 12:18 | Progress Note ---
Subjective Date of service: 05/01/20 Principal diagnosis: (1) Schizoaffective Disorder Subjective Comment: Psych Nurse: Last evening the patient walked back and forth between her room and the activity room. While walking she is talking to herself. She denies si/hi. Patient presents as mildly suspicious but smiles upon approach. She was medication compliant. Will continue to monitor patient for safety. Psych Progress Patient seen this AM, patient states she knows why she is in the hospital which is due to suicidal hallucinations. Patient reports she is hearing voices telling her to get a gun to kill herself or overdose on medications. Patient endorses good appetite and denies any nightmares. Reports one of her sisters getting cremated today and she would like to see if she could be discharged to go to plan, counseled patient about need to plan discharge social work therapist for outpatient follow-up services but will be impossible to do today due to her persistent hallucination and thoughts of killing self. For continued psych inpatient hospitalization: Persistent suicidal ideation REVIEW OF SYSTEMS Constitutional: Negative for weight loss ENT: Negative for stridor Respiratory: Negative for cough or hemoptysis All other systems reviewed and are negative MENTAL STATUS EXAMINATION General Appearance and Behavior: Age appropriate, good hygiene, not wearing appropriate clothes, good eye contact, calm and cooperative with questioning. Cooperation: Participating Mood: okay Affect and affective range: congruent with stated mood Thought Process: Responding to internal stimuli Speech: pressured, loud volume at times Thought content: hallucinations Suicidal Ideation: Yes Homicidal Ideation: Denies HI Hallucinations: Yes, auditory Delusions: None elicited Impulse Control: Normal Insight and Judgment: Impaired insight and judgment Memory: Limited Attention: Impaired Orientation: Alert, oriented Assessment and Plan (1) Schizoaffective Disorder Current Visit: Yes Status: Acute Treatment Plan Patient admitted for inpatient psychiatric evaluation, medication adjustment and close monitoring The patient's behavior, mood, sleep and appetite will be closely monitored. Patient enrolled in individual and group therapeutic sessions and encouraged to attend. Patient provided with a safe and structured environment. Patient's physical health needs will be addressed by the Hospitalist. Hospitalist Consulted Labs including CBC, CMP, Lipid profile and Hemoglobin A1C levels ordered for baseline reference Social Assessment will be completed and the Pediatric Physical Therapy Assistant will work with patient and family to ensure a suitable and safe disposition Medication adjustment will be made as clinically indicated Continue Risperidone 2mg po BID Increase Depakote DR 250mg po BID Usual Wellness Restorationism/Preservation: - Start Trazodone 50 mg po QHS & 50 mg po QHS PRN between 10 PM & 2 AM for insomnia - Start Melatonin 5 mg po QHS to promote circadian rhythm - Start [place]-3 for brain health, reduce impulsivity, and as adjunctive treatment for mood disorder, continue upon discharge given overall benefits. - Start B1 prophylaxis with 200 mg po for 5 days The patient agreed on the treatment plan, understood the risk, benefit, alternative treatment, potential consequence of no treatment, and gave informed consent. Initial Certification I certify that the inpatient psychiatric services are required for treatment that could reasonably be expected to improve the patient's condition. Estimated days: 4 Post hospital care: primary care provider, psychiatric provider Medications and Allergies Allergies Allergy/AdvReac Type Severity Reaction Status Date / Time No Known Allergies Allergy Verified 04/24/20 10:55 Home Medications Medication Instructions Recorded Confirmed Last Taken Type Unobtainable 04/26/20 04/29/[address] [Anatoly BELL] 250 mg PO BID 04/29/20 04/29/20 04/28/20 09:57 History amLODIPine [Norvasc] 5 mg PO DAILY 04/29/20 04/29/20 Unknown History risperiDONE [RisperDAL] 2 mg PO BID 04/29/20 04/29/20 04/28/20 09:57 History Active Meds: Active Medications Divalproex Sodium (Divalproex Dr 250 Mg Tab) 250 mg PO BID [facility] Last Admin: 05/01/20 10:02 Dose: 250 mg Documented by: Risperidone (Risperidone 1 Mg Tab) 2 mg PO BID [facility] Last Admin: 05/01/20 10:02 Dose: 2 mg Documented by: Trazodone HCl (Trazodone 50 Mg Tab) 50 mg PO QHS [facility] Last Admin: 04/30/20 23:58 Dose: 50 mg Documented by: Results - Results Labs/Vitals: Laboratory Last Values WBC 3.9 K/mm3 (4.5-11.0) L 04/30/20 09:22 RBC 4.57 M/mm3 (3.65-5.03) 04/30/20 09:22 Hgb 14.0 gm/dl (10.1-14.3) 04/30/20 09:22 Hct 41.7 % (30.3-42.9) 04/30/20 09: MCV 91 fl (79-97) 04/30/20 09: MCH 31 pg (28-32) 04/30/20 09: MCHC 34 % (30-34) 04/30/20 09:22 RDW 13.7 % (13.2-15.2) 04/30/20 09: Plt Count 195 K/mm3 (140-440) 04/30/20 09:22 Lymph % (Auto) 37.8 % (13.4-35.0) H 04/29/20 09:28 [place] % (Auto) 8.6 % (0.0-7.3) H 04/29/20 09: Eos % (Auto) 3.4 % (0.0-4.3) 04/29/20 09: Baso % (Auto) 0.7 % (0.0-1.8) 04/29/20 09: Lymph # (Auto) 1.5 K/mm3 (1.2-5.4) 04/29/20 09:28 [place] # (Auto) 0.3 K/mm3 (0.0-0.8) 04/29/20 09:28 Eos # (Auto) 0.1 K/mm3 (0.0-0.4) 04/29/20 09: Baso # (Auto) 0.0 K/mm3 (0.0-0.1) 04/29/20 09: Seg Neutrophils % 49.5 % (40.0-70.0) 04/29/20 09: Seg Neutrophils # 1.9 K/mm3 (1.8-7.7) 04/29/20 09:28 Sodium 139 mmol/L (137-145) 04/30/20 09:22 Potassium 4.2 mmol/L (3.6-5.0) 04/30/20 09: Chloride 103.1 mmol/L (98-107) 04/30/20 09: Carbon Dioxide 27 mmol/L (22-30) 04/30/20 09:22 Anion Gap 13 mmol/L 04/30/20 09:22 BUN 14 mg/dL (7-17) 04/30/20 09:22 Creatinine 0.7 mg/dL (0.6-1.2) 04/30/20 09:22 Estimated GFR > 60 ml/min 04/30/20 09:22 BUN/Creatinine Ratio 20 % 04/30/20 09:22 Glucose 97 mg/dL (65-100) 04/30/20 09:22 POC Glucose 81 mg/dL (70-105) 04/30/20 06:45 Hemoglobin A1c 5.8 % (4-6) 04/29/20 09:28 Calcium 9.4 mg/dL (8.4-10.2) 04/30/20 09:22 Total Bilirubin 0.30 mg/dL (0.1-1.2) 04/29/20 09:28 AST 29 units/L (5-40) 04/29/20 09:28 ALT 31 units/L (7-56) 04/29/20 09:28 Alkaline Phosphatase 70 units/L (35-129) 04/29/20 09:28 Total Protein 7.6 g/dL (6.3-8.2) 04/29/20 09:28 Albumin 4.4 g/dL (3.9-5) 04/29/20 09:28 Albumin/Globulin Ratio 1.4 % 04/29/20 09:28 Triglycerides 99 mg/dL (2-149) 04/29/20 09:28 Cholesterol 219 mg/dL (50-199) H 04/29/20 09:28 LDL Cholesterol Direct 152 mg/dL (50-130) H 04/29/20 09:28 HDL Cholesterol 69 mg/dL (40-59) H 04/29/20 09:28 Cholesterol/HDL Ratio 3.17 % 04/29/20 09:28 TSH 1.460 mlU/mL (0.270-4.200) 04/29/20 09:28 Urine Color Yellow (Yellow) 04/29/20 Unknown Urine Turbidity Slightly-cloudy (Clear) 04/29/20 Unknown Urine pH 5.0 (5.0-7.0) 04/29/20 Unknown Ur Specific [place] 1.014 (1.003-1.030) 04/29/20 Unknown Urine Protein <15 mg/dl mg/dL (Negative) 04/29/20 Unknown Urine Glucose (UA) Neg mg/dL (Negative) 04/29/20 Unknown Urine Ketones Neg mg/dL (Negative) 04/29/20 Unknown Urine Blood Neg (Negative) 04/29/20 Unknown Urine Nitrite Neg (Negative) 04/29/20 Unknown Urine Bilirubin Neg (Negative) 04/29/20 Unknown Urine Urobilinogen < 2.0 mg/dL (<2.0) 04/29/20 Unknown Ur Leukocyte Esterase Lg (Negative) 04/29/20 Unknown Urine WBC (Auto) 6.0 /HPF (0.0-6.0) 04/29/20 Unknown Urine RBC (Auto) 3.0 /HPF (0.0-6.0) 04/29/20 Unknown U Epithel Cells (Auto) 5.0 /HPF (0-13.0) 04/29/20 Unknown Urine Bacteria (Auto) 1+ /HPF (Negative) 04/29/20 Unknown Last Vital Signs Temp 98.3 F 04/30/20 22:00 Pulse 76 04/30/20 22:00 Resp 16 04/30/20 22:00 BP 117/72 04/30/20 22:00 Pulse Ox 100 04/30/20 22:00
[2020-05-01] MEDS: traZODone 50 MG TAB PO SCH (21:05)
[2020-05-02] MEDS: DIVALPROEX DR 250 MG TAB PO SCH ×3 (08:35→20:38)
[2020-05-02] MEDS: risperiDONE 1 MG TAB PO SCH ×2 (09:07→21:07)
--- NOTE | 2020-05-02 09:16 | Progress Note ---
Subjective Date of service: 05/02/20 Principal diagnosis: (1) Schizoaffective Disorder Subjective Comment: Psych Nurse: pt spent last evening waking back and forth between her room and the activity room, denies si/hi, denies a/v/h, but observed talking and laughing to herself, pt is compliant with medication, slept for approximately 7hrs during the night, no distress noted, will continue to monitor for safety. Psych Progress Patient seen in the hallway today, patient reported she is getting a physical activity. Patient stated that she called yesterday to her family and she was told her half sister was not cremated yesterday they will be cremated tomorrow asking to be discharged today. By history from director social, patient does not currently have any family member that is supposed to be cremated. They report pt is paranoid and obsessed with the idea. Patient had initially presented with complaints of wanting to attend mothers and that she has a a 2 day old baby. For continued psych inpatient hospitalization: Persistent suicidal ideation REVIEW OF SYSTEMS Constitutional: Negative for weight loss ENT: Negative for stridor Respiratory: Negative for cough or hemoptysis All other systems reviewed and are negative MENTAL STATUS EXAMINATION General Appearance and Behavior: Age appropriate, good hygiene, not wearing appropriate clothes, good eye contact, calm and cooperative with questioning. Cooperation: Participating Mood: okay Affect and affective range: congruent with stated mood Thought Process: Responding to internal stimuli Speech: pressured, loud volume at times Thought content: hallucinations, obessions. Suicidal Ideation: Yes Homicidal Ideation: Denies HI Hallucinations: Yes, auditory Delusions: None elicited Impulse Control: Normal Insight and Judgment: Impaired insight and judgment Memory: Limited Attention: Impaired Orientation: Alert, oriented Assessment and Plan (1) Schizoaffective Disorder Current Visit: Yes Status: Acute Treatment Plan Patient admitted for inpatient psychiatric evaluation, medication adjustment and close monitoring The patient's behavior, mood, sleep and appetite will be closely monitored. Patient enrolled in individual and group therapeutic sessions and encouraged to attend. Patient provided with a safe and structured environment. Patient's physical health needs will be addressed by the Hospitalist. Hospitalist Consulted Labs including CBC, CMP, Lipid profile and Hemoglobin A1C levels ordered for baseline reference Social Assessment will be completed and the Official Court Interpreter will work with patient and family to ensure a suitable and safe disposition Medication adjustment will be made as clinically indicated Continue Risperidone 2mg po BID Increase Depakote DR 250mg po BID Usual Wellness Gnosticist/Preservation: - Start Trazodone 50 mg po QHS & 50 mg po QHS PRN between 10 PM & 2 AM for insomnia - Start Melatonin 5 mg po QHS to promote circadian rhythm - Start [place]-3 for brain health, reduce impulsivity, and as adjunctive treatment for mood disorder, continue upon discharge given overall benefits. - Start B1 prophylaxis with 200 mg po for 5 days The patient agreed on the treatment plan, understood the risk, benefit, alternative treatment, potential consequence of no treatment, and gave informed consent. Initial Certification I certify that the inpatient psychiatric services are required for treatment that could reasonably be expected to improve the patient's condition. Estimated days: 4 Post hospital care: primary care provider, psychiatric provider Medications and Allergies Allergies Allergy/AdvReac Type Severity Reaction Status Date / Time No Known Allergies Allergy Verified 04/24/20 10:55 Home Medications Medication Instructions Recorded Confirmed Last Taken Type Unobtainable 04/26/20 04/29/[address] [DepaKOTE DR] 250 mg PO BID 04/29/20 04/29/20 04/28/20 09:57 History amLODIPine [Norvasc] 5 mg PO DAILY 04/29/20 04/29/20 Unknown History risperiDONE [RisperDAL] 2 mg PO BID 04/29/20 04/29/20 04/28/20 09:57 History Active Meds: Active Medications Divalproex Sodium (Divalproex Dr 250 Mg Tab) 250 mg PO TID [facility] Last Admin: 05/02/20 08:35 Dose: 250 mg Documented by: Risperidone (Risperidone 1 Mg Tab) 2 mg PO BID [facility] Last Admin: 05/02/20 09:07 Dose: 2 mg Documented by: Trazodone HCl (Trazodone 50 Mg Tab) 50 mg PO QHS [facility] Last Admin: 05/01/20 21:05 Dose: 50 mg Documented by: Results - Results Labs/Vitals: Laboratory Last Values WBC 3.9 K/mm3 (4.5-11.0) L 04/30/20 09:22 RBC 4.57 M/mm3 (3.65-5.03) 04/30/20 09:22 Hgb 14.0 gm/dl (10.1-14.3) 04/30/20 09:22 Hct 41.7 % (30.3-42.9) 04/30/20 09:22 MCV 91 fl (79-97) 04/30/20 09:22 MCH 31 pg (28-32) 04/30/20 09:22 MCHC 34 % (30-34) 04/30/20 09:22 RDW 13.7 % (13.2-15.2) 04/30/20 09:22 Plt Count 195 K/mm3 (140-440) 04/30/20 09:22 Lymph % (Auto) 37.8 % (13.4-35.0) H 04/29/20 09:28 [place] % (Auto) 8.6 % (0.0-7.3) H 04/29/20 09:28 Eos % (Auto) 3.4 % (0.0-4.3) 04/29/20 09:28 Baso % (Auto) 0.7 % (0.0-1.8) 04/29/20 09:28 Lymph # (Auto) 1.5 K/mm3 (1.2-5.4) 04/29/20 09:28 [place] # (Auto) 0.3 K/mm3 (0.0-0.8) 04/29/20 09:28 Eos # (Auto) 0.1 K/mm3 (0.0-0.4) 04/29/20 09:28 Baso # (Auto) 0.0 K/mm3 (0.0-0.1) 04/29/20 09: Seg Neutrophils % 49.5 % (40.0-70.0) 04/29/20 09:28 Seg Neutrophils # 1.9 K/mm3 (1.8-7.7) 04/29/20 09:28 Sodium 139 mmol/L (137-145) 04/30/20 09:22 Potassium 4.2 mmol/L (3.6-5.0) 04/30/20 09: Chloride 103.1 mmol/L (98-107) 04/30/20 09:22 Carbon Dioxide 27 mmol/L (22-30) 04/30/20 09:22 Anion Gap 13 mmol/L 04/30/20 09:22 BUN 14 mg/dL (7-17) 04/30/20 09:22 Creatinine 0.7 mg/dL (0.6-1.2) 04/30/20 09:22 Estimated GFR > 60 ml/min 04/30/20 09:22 BUN/Creatinine Ratio 20 % 04/30/20 09:22 Glucose 97 mg/dL (65-100) 04/30/20 09:22 POC Glucose 81 mg/dL (70-105) 04/30/20 06:45 Hemoglobin A1c 5.8 % (4-6) 04/29/20 09:28 Calcium 9.4 mg/dL (8.4-10.2) 04/30/20 09:22 Total Bilirubin 0.30 mg/dL (0.1-1.2) 04/29/20 09:28 AST 29 units/L (5-40) 04/29/20 09:28 ALT 31 units/L (7-56) 04/29/20 09:28 Alkaline Phosphatase 70 units/L (35-129) 04/29/20 09:28 Total Protein 7.6 g/dL (6.3-8.2) 04/29/20 09:28 Albumin 4.4 g/dL (3.9-5) 04/29/20 09:28 Albumin/Globulin Ratio 1.4 % 04/29/20 09:28 Triglycerides 99 mg/dL (2-149) 04/29/20 09:28 Cholesterol 219 mg/dL (50-199) H 04/29/20 09:28 LDL Cholesterol Direct 152 mg/dL (50-130) H 04/29/20 09:28 HDL Cholesterol 69 mg/dL (40-59) H 04/29/20 09:28 Cholesterol/HDL Ratio 3.17 % 04/29/20 09:28 TSH 1.460 mlU/mL (0.270-4.200) 04/29/20 09:28 Urine Color Yellow (Yellow) 04/29/20 Unknown Urine Turbidity Slightly-cloudy (Clear) 04/29/20 Unknown Urine pH 5.0 (5.0-7.0) 04/29/20 Unknown Ur Specific [place] 1.014 (1.003-1.030) 04/29/20 Unknown Urine Protein <15 mg/dl mg/dL (Negative) 04/29/20 Unknown Urine Glucose (UA) Neg mg/dL (Negative) 04/29/20 Unknown Urine Ketones Neg mg/dL (Negative) 04/29/20 Unknown Urine Blood Neg (Negative) 04/29/20 Unknown Urine Nitrite Neg (Negative) 04/29/20 Unknown Urine Bilirubin Neg (Negative) 04/29/20 Unknown Urine Urobilinogen < 2.0 mg/dL (<2.0) 04/29/20 Unknown Ur Leukocyte Esterase Lg (Negative) 04/29/20 Unknown Urine WBC (Auto) 6.0 /HPF (0.0-6.0) 04/29/20 Unknown Urine RBC (Auto) 3.0 /HPF (0.0-6.0) 04/29/20 Unknown U Epithel Cells (Auto) 5.0 /HPF (0-13.0) 04/29/20 Unknown Urine Bacteria (Auto) 1+ /HPF (Negative) 04/29/20 Unknown Last Vital Signs Temp 97.0 F L 05/01/20 21:00 Pulse 67 05/01/20 21:00 Resp 16 05/01/20 21:00 BP 130/77 05/01/20 21:00 Pulse Ox 98 05/01/20 21:00
[2020-05-02] MEDS: traZODone 50 MG TAB PO SCH (21:07)
[2020-05-03] MEDS: DIVALPROEX DR 250 MG TAB PO SCH ×3 (08:50→21:20)
[2020-05-03] MEDS: risperiDONE 1 MG TAB PO SCH ×2 (09:11→21:20)
[2020-05-03] MEDS: ACETAMINOPHEN 325 MG TAB PO PRN ×2 (09:12→19:40)
--- NOTE | 2020-05-03 09:35 | Progress Note ---
Subjective Date of service: 05/03/20 Principal diagnosis: (1) Schizoaffective Disorder Subjective Comment: Psych Nurse: Patient is calm and cooperative with staff and peers, she occasionally talks to herself, but denies talking to herself. She denies hearing voices and no SI. She was medications compliant, denies any needs at present. Will continue to monitor. Psych Progress Patient seen this morning reports doing okay, states she spoke with her brother yesterday and he noted that she can stay with him when she is discharged from the hospital. Patient denies SI and also denies auditory visual estimation, patient is not paranoid about attending apparel for the morning today. Patient says she feels good but has always been angry and testy all the time since yesterday endorses eating breakfast this a.m. and feeling okay otherwise no other complaints. Reason for continued psych inpatient hospitalization: Planning for safety discharge tomorrow REVIEW OF SYSTEMS Constitutional: Negative for weight loss ENT: Negative for stridor Respiratory: Negative for cough or hemoptysis All other systems reviewed and are negative MENTAL STATUS EXAMINATION General Appearance and Behavior: Age appropriate, good hygiene, not wearing appropriate clothes, good eye contact, calm and cooperative with questioning. Cooperation: Participating Mood: okay Affect and affective range: congruent with stated mood Thought Process: Responding to internal stimuli Speech: pressured, loud volume at times Thought content: hallucinations, obessions. Suicidal Ideation: Yes Homicidal Ideation: Denies HI Hallucinations: Yes, auditory Delusions: None elicited Impulse Control: Normal Insight and Judgment: Impaired insight and judgment Memory: Limited Attention: Impaired Orientation: Alert, oriented Assessment and Plan (1) Schizoaffective Disorder Current Visit: Yes Status: Acute Treatment Plan Patient admitted for inpatient psychiatric evaluation, medication adjustment and close monitoring The patient's behavior, mood, sleep and appetite will be closely monitored. Patient enrolled in individual and group therapeutic sessions and encouraged to attend. Patient provided with a safe and structured environment. Patient's physical health needs will be addressed by the Hospitalist. [place] mayen Consulted Labs including CBC, CMP, Lipid profile and Hemoglobin A1C levels ordered for baseline reference Social Assessment will be completed and the Production Or Plant Engineer will work with patient and family to ensure a suitable and safe disposition Medication adjustment will be made as clinically indicated Continue Risperidone 2mg po BID Increase Depakote DR 250mg po BID Usual Wellness Denominational/Preservation: - Start Trazodone 50 mg po QHS & 50 mg po QHS PRN between 10 PM & 2 AM for insomnia - Start Melatonin 5 mg po QHS to promote circadian rhythm - Start [place]-3 for brain health, reduce impulsivity, and as adjunctive treatment for mood disorder, continue upon discharge given overall benefits. - Start B1 prophylaxis with 200 mg po for 5 days The patient agreed on the treatment plan, understood the risk, benefit, alternative treatment, potential consequence of no treatment, and gave informed consent. Initial Certification I certify that the inpatient psychiatric services are required for treatment that could reasonably be expected to improve the patient's condition. Estimated days: 4 Post hospital care: primary care provider, psychiatric provider Medications and Allergies Allergies Allergy/AdvReac Type Severity Reaction Status Date / Time No Known Allergies Allergy Verified 04/24/20 10:55 Home Medications Medication Instructions Recorded Confirmed Last Taken Type Unobtainable 04/26/20 04/29/[address] [Anatoly BELL] 250 mg PO BID 04/29/20 04/29/20 04/28/20 09:57 History amLODIPine [Norvasc] 5 mg PO DAILY 04/29/20 04/29/20 Unknown History risperiDONE [RisperDAL] 2 mg PO BID 04/29/20 04/29/20 04/28/20 09:57 History Active Meds: Active Medications Acetaminophen (Acetaminophen 325 Mg Tab) 650 mg PO Q6H PRN PRN Reason: Pain, Mild (1-3) Last Admin: 05/03/20 09:12 Dose: 650 mg Documented by: Divalproex Sodium (Divalproex Dr 250 Mg Tab) 250 mg PO TID [facility] Last Admin: 05/03/20 08:50 Dose: 250 mg Documented by: Risperidone (Risperidone 1 Mg Tab) 2 mg PO BID [facility] Last Admin: 05/03/20 09:11 Dose: 2 mg Documented by: Trazodone HCl (Trazodone 50 Mg Tab) 50 mg PO QHS [facility] Last Admin: 05/02/20 21:07 Dose: 50 mg Documented by: Results - Results Labs/Vitals: Laboratory Last Values WBC 3.9 K/mm3 (4.5-11.0) L 04/30/20 09:22 RBC 4.57 M/mm3 (3.65-5.03) 04/30/20 09:22 Hgb 14.0 gm/dl (10.1-14.3) 04/30/20 09:22 Hct 41.7 % (30.3-42.9) 04/30/20 09:22 MCV 91 fl (79-97) 04/30/20 09:22 MCH 31 pg (28-32) 04/30/20 09:22 MCHC 34 % (30-34) 04/30/20 09:22 RDW 13.7 % (13.2-15.2) 04/30/20 09:22 Plt Count 195 K/mm3 (140-440) 04/30/20 09:22 Lymph % (Auto) 37.8 % (13.4-35.0) H 04/29/20 09:28 [place] % (Auto) 8.6 % (0.0-7.3) H 04/29/20 09:28 Eos % (Auto) 3.4 % (0.0-4.3) 04/29/20 09:28 Baso % (Auto) 0.7 % (0.0-1.8) 04/29/20 09:28 Lymph # (Auto) 1.5 K/mm3 (1.2-5.4) 04/29/20 09:28 [place] # (Auto) 0.3 K/mm3 (0.0-0.8) 04/29/20 09:28 Eos # (Auto) 0.1 K/mm3 (0.0-0.4) 04/29/20 09:28 Baso # (Auto) 0.0 K/mm3 (0.0-0.1) 04/29/20 09:28 Seg Neutrophils % 49.5 % (40.0-70.0) 04/29/20 09:28 Seg Neutrophils # 1.9 K/mm3 (1.8-7.7) 04/29/20 09:28 Sodium 139 mmol/L (137-145) 04/30/20 09:22 Potassium 4.2 mmol/L (3.6-5.0) 04/30/20 09: Chloride 103.1 mmol/L (98-107) 04/30/20 09:22 Carbon Dioxide 27 mmol/L (22-30) 04/30/20 09:22 Anion Gap 13 mmol/L 04/30/20 09:22 BUN 14 mg/dL (7-17) 04/30/20 09:22 Creatinine 0.7 mg/dL (0.6-1.2) 04/30/20 09:22 Estimated GFR > 60 ml/min 04/30/20 09:22 BUN/Creatinine Ratio 20 % 04/30/20 09:22 Glucose 97 mg/dL (65-100) 04/30/20 09:22 POC Glucose 81 mg/dL (70-105) 04/30/20 06:45 Hemoglobin A1c 5.8 % (4-6) 04/29/20 09:28 Calcium 9.4 mg/dL (8.4-10.2) 04/30/20 09:22 Total Bilirubin 0.30 mg/dL (0.1-1.2) 04/29/20 09:28 AST 29 units/L (5-40) 04/29/20 09:28 ALT 31 units/L (7-56) 04/29/20 09:28 Alkaline Phosphatase 70 units/L (35-129) 04/29/20 09:28 Total Protein 7.6 g/dL (6.3-8.2) 04/29/20 09:28 Albumin 4.4 g/dL (3.9-5) 04/29/20 09:28 Albumin/Globulin Ratio 1.4 % 04/29/20 09:28 Triglycerides 99 mg/dL (2-149) 04/29/20 09:28 Cholesterol 219 mg/dL (50-199) H 04/29/20 09:28 LDL Cholesterol Direct 152 mg/dL (50-130) H 04/29/20 09:28 HDL Cholesterol 69 mg/dL (40-59) H 04/29/20 09:28 Cholesterol/HDL Ratio 3.17 % 04/29/20 09:28 TSH 1.460 mlU/mL (0.270-4.200) 04/29/20 09:28 Urine Color Yellow (Yellow) 04/29/20 Unknown Urine Turbidity Slightly-cloudy (Clear) 04/29/20 Unknown Urine pH 5.0 (5.0-7.0) 04/29/20 Unknown Ur Specific [place] 1.014 (1.003-1.030) 04/29/20 Unknown Urine Protein <15 mg/dl mg/dL (Negative) 04/29/20 Unknown Urine Glucose (UA) Neg mg/dL (Negative) 04/29/20 Unknown Urine Ketones Neg mg/dL (Negative) 04/29/20 Unknown Urine Blood Neg (Negative) 04/29/20 Unknown Urine Nitrite Neg (Negative) 04/29/20 Unknown Urine Bilirubin Neg (Negative) 04/29/20 Unknown Urine Urobilinogen < 2.0 mg/dL (<2.0) 04/29/20 Unknown Ur Leukocyte Esterase Lg (Negative) 04/29/20 Unknown Urine WBC (Auto) 6.0 /HPF (0.0-6.0) 04/29/20 Unknown Urine RBC (Auto) 3.0 /HPF (0.0-6.0) 04/29/20 Unknown U Epithel Cells (Auto) 5.0 /HPF (0-13.0) 04/29/20 Unknown Urine Bacteria (Auto) 1+ /HPF (Negative) 04/29/20 Unknown Last Vital Signs Temp 97.9 F 05/03/20 08:37 Pulse 58 L 05/03/20 08:37 Resp 18 05/03/20 08:37 BP 119/74 05/03/20 08:37 Pulse Ox 98 05/03/20 08:37
[2020-05-03] MEDS: traZODone 50 MG TAB PO SCH (21:20)
--- NOTE | 2020-05-04 08:34 | Progress Note ---
Subjective Date of service: 05/04/20 Principal diagnosis: (1) Schizoaffective Disorder Subjective Comment: Psych Nurse:This evening the patient presents as calmer. She requested Tylenol for a headache. She states it helped and she was able to doze off to sleep. She denies si/hi/ah/vh but at times she can be overheard talking to herself. She ate 100% of her snack. Patient is medication compliant. Will continue to monitor patient for safety. Psych Progress Patient describes a good and stable mood, denies being depressed or excessively nervous. Patient eats and sleeps well. Patient denies panic attacks, recurrent nightmares or flashbacks. Patient denies symptoms suggestive of OCD or PTSD. Patient denies hallucinations, paranoia, thought interference> Though patient still exhibits features suggestive of hypomania but no acute madai or psychosis observed. Patiently completely denies suicidal or homicidal thoughts. Reason for continued psych inpatient hospitalization: Planning for safety discharge tomorrow REVIEW OF SYSTEMS Constitutional: Negative for weight loss ENT: Negative for stridor Respiratory: Negative for cough or hemoptysis All other systems reviewed and are negative MENTAL STATUS EXAMINATION General Appearance and Behavior: Age appropriate, good hygiene, not wearing appropriate clothes, good eye contact, calm and cooperative with questioning. Cooperation: Participating Mood: okay Affect and affective range: congruent with stated mood Thought Process: Responding to internal stimuli Speech: pressured, loud volume at times Thought content: logical Suicidal Ideation: none reported Homicidal Ideation: Denies HI Hallucinations: Yes, auditory Delusions: None elicited Impulse Control: Normal Insight and Judgment: Impaired insight and judgment Memory: Limited Attention: Impaired Orientation: Alert, oriented Assessment and Plan (1) Schizoaffective Disorder Current Visit: Yes Status: Acute Treatment Plan Patient admitted for inpatient psychiatric evaluation, medication adjustment and close monitoring The patient's behavior, mood, sleep and appetite will be closely monitored. Patient enrolled in individual and group therapeutic sessions and encouraged to attend. Patient provided with a safe and structured environment. Patient's physical health needs will be addressed by the Hospitalist. Hospitalist Consulted Labs including CBC, CMP, Lipid profile and Hemoglobin A1C levels ordered for baseline reference Social Assessment will be completed and the Rfid Engineer will work with patient and family to ensure a suitable and safe disposition Medication adjustment will be made as clinically indicated Continue Risperidone 2mg po BID Increase Depakote DR 250mg po BID Usual Wellness Orthodox/Preservation: - Start Trazodone 50 mg po QHS & 50 mg po QHS PRN between 10 PM & 2 AM for insomnia - Start Melatonin 5 mg po QHS to promote circadian rhythm - Start [place]-3 for brain health, reduce impulsivity, and as adjunctive treatment for mood disorder, continue upon discharge given overall benefits. - Start B1 prophylaxis with 200 mg po for 5 days The patient agreed on the treatment plan, understood the risk, benefit, alternative treatment, potential consequence of no treatment, and gave informed consent. Initial Certification I certify that the inpatient psychiatric services are required for treatment that could reasonably be expected to improve the patient's condition. Estimated days: 4 Post hospital care: primary care provider, psychiatric provider Medications and Allergies Allergies Allergy/AdvReac Type Severity Reaction Status Date / Time No Known Allergies Allergy Verified 04/24/20 10:55 Home Medications Medication Instructions Recorded Confirmed Last Taken Type Divalproex Dr [Flores BIRCH] 250 mg PO BID 04/29/20 04/29/20 04/28/20 09:57 History amLODIPine [Norvasc] 5 mg PO DAILY 04/29/20 04/29/20 Unknown History risperiDONE [RisperDAL] 2 mg PO BID 04/29/20 04/29/20 04/28/20 09:[address] [Flores Birch] 250 mg PO TID 30 Days #90 tablet 05/04/20 Unknown Rx risperiDONE [RisperDAL] 2 mg PO BID 30 Days #60 tablet 05/04/20 Unknown Rx traZODone [Desyrel] 50 mg PO QHS 30 Days #30 tablet 05/04/20 Unknown Rx Active Meds: Active Medications Acetaminophen (Acetaminophen 325 Mg Tab) 650 mg PO Q6H PRN PRN Reason: Pain, Mild (1-3) Last Admin: 05/03/20 19:40 Dose: 650 mg Documented by: Divalproex Sodium (Divalproex Dr 250 Mg Tab) 250 mg PO TID [facility] Last Admin: 05/03/20 21:20 Dose: 250 mg Documented by: Risperidone (Risperidone 1 Mg Tab) 2 mg PO BID [facility] Last Admin: 05/03/20 21:20 Dose: 2 mg Documented by: Trazodone HCl (Trazodone 50 Mg Tab) 50 mg PO QHS [facility] Last Admin: 05/03/20 21:20 Dose: 50 mg Documented by: Results - Results Labs/Vitals: Laboratory Last Values WBC 3.9 K/mm3 (4.5-11.0) L 04/30/20 09: RBC 4.57 M/mm3 (3.65-5.03) 04/30/20 09: Hgb 14.0 gm/dl (10.1-14.3) 04/30/20 09: Hct 41.7 % (30.3-42.9) 04/30/20 09: MCV 91 fl (79-97) 04/30/20 09: MCH 31 pg (28-32) 04/30/20: MCHC 34 % (30-34) 04/30/20: RDW 13.7 % (13.2-15.2) 04/30/20 09: Plt Count 195 K/mm3 (140-440) 04/30/20 09: Lymph % (Auto) 37.8 % (13.4-35.0) H 04/29/20 09: [place] % (Auto) 8.6 % (0.0-7.3) H 04/29/20 09: Eos % (Auto) 3.4 % (0.0-4.3) 04/29/20 09: Baso % (Auto) 0.7 % (0.0-1.8) 04/29/20 09: Lymph # (Auto) 1.5 K/mm3 (1.2-5.4) 04/29/20 09: [place] # (Auto) 0.3 K/mm3 (0.0-0.8) 04/29/20 09: Eos # (Auto) 0.1 K/mm3 (0.0-0.4) 04/29/20 09: Baso # (Auto) 0.0 K/mm3 (0.0-0.1) 04/29/20 09: Seg Neutrophils % 49.5 % (40.0-70.0) 04/29/20 09: Seg Neutrophils # 1.9 K/mm3 (1.8-7.7) 04/29/20 09: Sodium 139 mmol/L (137-145) 04/30/20:22 Potassium 4.2 mmol/L (3.6-5.0) 04/30/20 09:22 Chloride 103.1 mmol/L (98-107) 04/30/20 09:22 Carbon Dioxide 27 mmol/L (22-30) 04/30/20 09:22 Anion Gap 13 mmol/L 04/30/20 09:22 BUN 14 mg/dL (7-17) 04/30/20 09:22 Creatinine 0.7 mg/dL (0.6-1.2) 04/30/20 09:22 Estimated GFR > 60 ml/min 04/30/20 09:22 BUN/Creatinine Ratio 20 % 04/30/20 09:22 Glucose 97 mg/dL (65-100) 04/30/20 09:22 POC Glucose 81 mg/dL (70-105) 04/30/20 06:45 Hemoglobin A1c 5.8 % (4-6) 04/29/20 09:28 Calcium 9.4 mg/dL (8.4-10.2) 04/30/20 09:22 Total Bilirubin 0.30 mg/dL (0.1-1.2) 04/29/20 09:28 AST 29 units/L (5-40) 04/29/20 09:28 ALT 31 units/L (7-56) 04/29/20 09:28 Alkaline Phosphatase 70 units/L (35-129) 04/29/20 09:28 Total Protein 7.6 g/dL (6.3-8.2) 04/29/20 09:28 Albumin 4.4 g/dL (3.9-5) 04/29/20 09:28 Albumin/Globulin Ratio 1.4 % 04/29/20 09:28 Triglycerides 99 mg/dL (2-149) 04/29/20 09:28 Cholesterol 219 mg/dL (50-199) H 04/29/20 09:28 LDL Cholesterol Direct 152 mg/dL (50-130) H 04/29/20 09:28 HDL Cholesterol 69 mg/dL (40-59) H 04/29/20 09:28 Cholesterol/HDL Ratio 3.17 % 04/29/20 09:28 TSH 1.460 mlU/mL (0.270-4.200) 04/29/20 09:28 Urine Color Yellow (Yellow) 04/29/20 Unknown Urine Turbidity Slightly-cloudy (Clear) 04/29/20 Unknown Urine pH 5.0 (5.0-7.0) 04/29/20 Unknown Ur Specific [place] 1.014 (1.003-1.030) 04/29/20 Unknown Urine Protein <15 mg/dl mg/dL (Negative) 04/29/20 Unknown Urine Glucose (UA) Neg mg/dL (Negative) 04/29/20 Unknown Urine Ketones Neg mg/dL (Negative) 04/29/20 Unknown Urine Blood Neg (Negative) 04/29/20 Unknown Urine Nitrite Neg (Negative) 04/29/20 Unknown Urine Bilirubin Neg (Negative) 04/29/20 Unknown Urine Urobilinogen < 2.0 mg/dL (<2.0) 04/29/20 Unknown Ur Leukocyte Esterase Lg (Negative) 04/29/20 Unknown Urine WBC (Auto) 6.0 /HPF (0.0-6.0) 04/29/20 Unknown Urine RBC (Auto) 3.0 /HPF (0.0-6.0) 04/29/20 Unknown U Epithel Cells (Auto) 5.0 /HPF (0-13.0) 04/29/20 Unknown Urine Bacteria (Auto) 1+ /HPF (Negative) 04/29/20 Unknown Last Vital Signs Temp 97.6 F 05/03/20 19:32 Pulse 61 05/03/20 19:32 Resp 16 05/03/20 19:40 BP 112/61 05/03/20 19:32 Pulse Ox 100 05/03/20 19:32
[2020-05-04 09:12] VITALS: BP 112/68
[2020-05-04] MEDS: DIVALPROEX DR 250 MG TAB PO SCH ×2 (09:21→14:14)
[2020-05-04] MEDS: risperiDONE 1 MG TAB PO SCH (09:21)
--- NOTE | 2020-05-04 13:19 | Discharge Summary ---
Providers - Providers Date of Admission: 04/28/20 20:30 Date of discharge: 05/04/20 Attending physician: KIANA WATTS MD 04/28/20 18:15 Consult to Physician [CONS] Routine Comment: Consulting Provider: BARTOLO MERRITT Physician Instructions: Reason For Exam: manage medical conditions Primary care physician: PRINT OPERATOR Hospitalization Reason for admission: MDD, bipolar acute Condition: Good Hospital course: The patient was provided inpatient psychiatric treatment with safe and supportive environment, group/individual therapy, psychiatric medication, medication adjustment, adverse effect monitor, medical evaluation, medical treatment, social service assessment, social support meeting, placement assessment and psycho-education. The patients mood, cognition, behavior, motivation, compliance to treatment and appreciation on family/social support are improved and stabilized. At the time of discharge, the patient had no suicidal ideas, no homicidal ideas, no aggressive thoughts, no endangering behavior and no debilitating adverse effects. The patient agareed on the treatment plan, understood the risk, benefit, alternative treatment, potential consequence of no treatment, and gave informed consent. Disposition: DC-01 TO HOME OR SELFCARE Allergies/Adverse Reactions: Allergies No Known Allergies Allergy (Verified 04/24/20 10:55) Vital Signs: Last Vital Signs Temp 98.8 F 05/04/20 07:43 Pulse 60 05/04/20 07:43 Resp 16 05/04/20 07:43 BP 112/68 05/04/20 07:43 Pulse Ox 100 05/04/20 07:43 Last Lab: Laboratory Last Values WBC 3.9 K/mm3 (4.5-11.0) L 04/30/20 09:22 RBC 4.57 M/mm3 (3.65-5.03) 04/30/20 09:22 Hgb 14.0 gm/dl (10.1-14.3) 04/30/20 09:22 Hct 41.7 % (30.3-42.9) 04/30/20 09:22 MCV 91 fl (79-97) 04/30/20 09:22 MCH 31 pg (28-32) 04/30/20 09:22 MCHC 34 % (30-34) 04/30/20 09:22 RDW 13.7 % (13.2-15.2) 04/30/20 09:22 Plt Count 195 K/mm3 (140-440) 04/30/20 09:22 Lymph % (Auto) 37.8 % (13.4-35.0) H 04/29/20 09:28 [place] % (Auto) 8.6 % (0.0-7.3) H 04/29/20 09:28 Eos % (Auto) 3.4 % (0.0-4.3) 04/29/20 09:28 Baso % (Auto) 0.7 % (0.0-1.8) 04/29/20 09:28 Lymph # (Auto) 1.5 K/mm3 (1.2-5.4) 04/29/20 09:28 [place] # (Auto) 0.3 K/mm3 (0.0-0.8) 04/29/20 09:28 Eos # (Auto) 0.1 K/mm3 (0.0-0.4) 04/29/20 09:28 Baso # (Auto) 0.0 K/mm3 (0.0-0.1) 04/29/20 09:28 Seg Neutrophils % 49.5 % (40.0-70.0) 04/29/20 09:28 Seg Neutrophils # 1.9 K/mm3 (1.8-7.7) 04/29/20 09:28 Sodium 139 mmol/L (137-145) 04/30/20 09:22 Potassium 4.2 mmol/L (3.6-5.0) 04/30/20 09:22 Chloride 103.1 mmol/L (98-107) 04/30/20 09:22 Carbon Dioxide 27 mmol/L (22-30) 04/30/20 09:22 Anion Gap 13 mmol/L 04/30/20 09:22 BUN 14 mg/dL (7-17) 04/30/20 09:22 Creatinine 0.7 mg/dL (0.6-1.2) 04/30/20 09:22 Estimated GFR > 60 ml/min 04/30/20 09:22 BUN/Creatinine Ratio 20 % 04/30/20 09:22 Glucose 97 mg/dL (65-100) 04/30/20 09:22 POC Glucose 81 mg/dL (70-105) 04/30/20 06:45 Hemoglobin A1c 5.8 % (4-6) 04/29/20 09:28 Calcium 9.4 mg/dL (8.4-10.2) 04/30/20 09:22 Total Bilirubin 0.30 mg/dL (0.1-1.2) 04/29/20 09:28 AST 29 units/L (5-40) 04/29/20 09:28 ALT 31 units/L (7-56) 04/29/20 09:28 Alkaline Phosphatase 70 units/L (35-129) 04/29/20 09:28 Total Protein 7.6 g/dL (6.3-8.2) 04/29/20 09:28 Albumin 4.4 g/dL (3.9-5) 04/29/20 09: Albumin/Globulin Ratio 1.4 % 04/29/20 09:28 Triglycerides 99 mg/dL (2-149) 04/29/20 09:28 Cholesterol 219 mg/dL (50-199) H 04/29/20 09:28 LDL Cholesterol Direct 152 mg/dL (50-130) H 04/29/20 09:28 HDL Cholesterol 69 mg/dL (40-59) H 04/29/20 09:28 Cholesterol/HDL Ratio 3.17 % 04/29/20 09:28 TSH 1.460 mlU/mL (0.270-4.200) 04/29/20 09:28 Urine Color Yellow (Yellow) 04/29/20 Unknown Urine Turbidity Slightly-cloudy (Clear) 04/29/20 Unknown Urine pH 5.0 (5.0-7.0) 04/29/20 Unknown Ur Specific [place] 1.014 (1.003-1.030) 04/29/20 Unknown Urine Protein <15 mg/dl mg/dL (Negative) 04/29/20 Unknown Urine Glucose (UA) Neg mg/dL (Negative) 04/29/20 Unknown Urine Ketones Neg mg/dL (Negative) 04/29/20 Unknown Urine Blood Neg (Negative) 04/29/20 Unknown Urine Nitrite Neg (Negative) 04/29/20 Unknown Urine Bilirubin Neg (Negative) 04/29/20 Unknown Urine Urobilinogen < 2.0 mg/dL (<2.0) 04/29/20 Unknown Ur Leukocyte Esterase Lg (Negative) 04/29/20 Unknown Urine WBC (Auto) 6.0 /HPF (0.0-6.0) 04/29/20 Unknown Urine RBC (Auto) 3.0 /HPF (0.0-6.0) 04/29/20 Unknown U Epithel Cells (Auto) 5.0 /HPF (0-13.0) 04/29/20 Unknown Urine Bacteria (Auto) 1+ /HPF (Negative) 04/29/20 Unknown Core Measure Documentation - Palliative Care Palliative Care/ Comfort Measures: Not Applicable - Core Measures Any of the following diagnoses?: none Exam - Constitutional Vitals: Temp Pulse Resp BP Pulse Ox 98.8 F 60 16 112/68 100 05/04/20 07:43 05/04/20 07:43 05/04/20 07:43 05/04/20 07:43 05/04/20 07:43 General appearance: Present: no acute distress - EENT Eyes: Present: PERRL, EOM intact ENT: hearing intact, clear oral mucosa - Neck Neck: Present: supple, normal ROM - Respiratory Respiratory effort: normal - Abdominal Female genitourinary: Present: deferred - Integumentary Integumentary: Present: clear, warm, dry Plan Activity: no restrictions Care Plan Goals: Goals: Maintain good and stable mental health. Plan of Treatment: The patient should be compliant with medications, not to use drugs and not to drink alcohol. The patient understands that if suicidal ideas, homicidal ideas, or any endangering thoughts arise, the patient should immediately seek for emergent assistance including but not limited to crisis hot line and emergency room. Follow up with outpatient Psychiatrist and PCP within 7 - 14 days of discharge. Follow up with: PRIMARY CARE,MD [Primary Care Provider] - 7 Days Prescriptions: traZODone [Desyrel] 50 mg PO QHS 30 Days #[address] [Depakote Dr] 250 mg PO TID 30 Days #90 tablet risperiDONE [RisperDAL] 2 mg PO BID 30 Days #60 tablet
== END 2020-05-04 16:45 | disposition home or self-care (01) | DRG 885 ==
LOC: 3A 14:41 → UNDOADMIN 14:41 → 5A 20:30
PROVIDERS: ADMIT Psychiatry & Neurology Psychiatry; ATTEND Psychiatry & Neurology Psychiatry
DX: F25.9 Schizoaffective disorder, unspecified (principal); Z59.0 Homelessness; I25.2 Old myocardial infarction; F41.9 Anxiety disorder, unspecified; I10 Essential (primary) hypertension; R73.03 Prediabetes; R45.851 Suicidal ideations; Z20.822 Contact with and (suspected) exposure to COVID-19; Z80.9 Family history of malignant neoplasm, unspecified; Z83.3 Family history of diabetes mellitus; Z84.89 Family history of other specified conditions; Z79.899 Other long term (current) drug therapy
CPT/HCPCS: 36415; 80048; 80053; 80061; 80307; 80320; 81001; 82962; 83036; 84443; 85025; 85027; 90686; 96372; G0378; G0480; J3486; U0003